=== PATIENT | female | born 1965 | race Caucasian/White ===

== ENCOUNTER 2020-09-30 14:54 | Outpatient (REF) | payer OTHER, SELFPAY ==
--- NOTE | 2020-09-30 15:00 | MM_ITS ---
EXAMINATION: MM SCREENING DIGITAL BREAST TOMOSYNTHESIS, BILATERAL CLINICAL INFORMATION: Screening. Asymptomatic. The lifetime risk of breast cancer based on the Tyrer-Cuzick Model is 8%. COMPARISON: Mammography: 03/04/2019, 12/01/2017, 11/12/2016 TECHNIQUE: Digital breast tomosynthesis is performed in both the craniocaudal and mediolateral oblique views along with computer-aided detection (CAD). Synthesized 2D images are generated from the tomosynthesis. FINDINGS: There are scattered areas of fibroglandular density (ACR BI-RADS breast composition Category b). There are no significant masses, abnormal calcifications, or other abnormalities. The axilla and skin contours are unremarkable. No significant changes. MM/MM tomosynthesis screening BI IMPRESSION: No mammographic evidence of malignancy. ASSESSMENT: BI-RADS 1: Negative RECOMMENDATION: Routine annual mammography screening. This patient's information was entered into a reminder system with a target due date for their next mammogram.
== END 2020-09-30 14:55 | disposition home or self-care (01) ==
LOC: HO.MAMMO 14:54
PROVIDERS: PCP Internal Medicine; Visit Provider Internal Medicine
DX: Z12.31 Encounter for screening mammogram for malignant neoplasm of breast (principal)
CPT/HCPCS: 77063; 77067

== ENCOUNTER → 2020-12-11 15:12 | Outpatient (BNVA) | payer OTHER, SELFPAY | PROVIDERS: Visit Provider Advanced Practice Midwife ==

== ENCOUNTER 2021-10-27 14:53 | Outpatient (REF) | payer OTHER, SELFPAY ==
--- NOTE | ~2021-10-27 | MM_ITS ---
EXAMINATION: MM SCREENING DIGITAL BREAST TOMOSYNTHESIS, BILATERAL CLINICAL INFORMATION: Screening. Asymptomatic. The lifetime risk of breast cancer based on the Tyrer-Cuzick Model is 7%. COMPARISON: Mammography: 09/30/2020, 03/04/2019, 12/01/2017 TECHNIQUE: Digital breast tomosynthesis is performed in both the craniocaudal and mediolateral oblique views along with computer-aided detection (CAD). Synthesized 2D images are generated from the tomosynthesis. Additional right MLO view is provided. FINDINGS: There are scattered areas of fibroglandular density (ACR BI-RADS breast composition Category b). Parenchymal pattern is similar to prior studies. There is no developing density or architectural abnormality. The axilla and skin contours are unremarkable. No significant changes. MM/MM tomosynthesis screening BI IMPRESSION: No mammographic evidence of malignancy. ASSESSMENT: BI-RADS 1: Negative RECOMMENDATION: Routine annual mammography screening. This patient's information was entered into a reminder system with a target due date for their next mammogram.
== END 2021-10-27 14:54 | disposition home or self-care (01) ==
LOC: HO.MAMMO 14:53
PROVIDERS: Visit Provider Internal Medicine
DX: Z12.31 Encounter for screening mammogram for malignant neoplasm of breast (principal)
CPT/HCPCS: 77063; 77067

== ENCOUNTER 2021-12-10 11:01 | Emergency (ER) | payer OTHER, SELFPAY ==
--- NOTE | 2021-12-10 11:14 | ED.ALLEREA ---
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 She reports after eating a muffin from the cafeteria she started to developed difficulty breathing and severe throat swelling. She immediately went to the nurse's office, got her EpiPen and the nurse administered the medication at approximately 10:25. On EMS arrival patient was tachycardic and had some labored breathing. She had given herself 4 puffs of her albuterol inhaler. She had reported her throat swelling and difficulty swallowing were starting to feel better after the EpiPen. She was given 50 mg of intravenous Benadryl by EMS. On arrival to the ER patient reports some residual shortness of breath but overall her symptoms have improved. She denies any tongue or lip swelling. No rash. MD complaint: allergic reaction Onset (ago): minute(s) Exposure: food Known history of allergy to: Nuts Symptoms: difficulty swallowing and difficulty breathing Severity: severe Treatment prior to arrival: benadryl, epinephrine and bronchodilator Previous Allergic Reaction History: prior ED visit(s) and anaphylaxis Related Data Home Medications Medication Instructions Recorded Confirmed albuterol sulfate 90 mcg/actuation 2 inh INHALATION Q6H PRN 12/11/20 breath activated powder inhaler budesonide-formoterol HFA 80 2 puff INHALATION BID 12/11/20 mcg-4.5 mcg/actuation aerosol inhaler (Symbicort) montelukast 10 mg tablet 10 mg PO DAILY 12/11/20 (Singulair) Previous Rx's Medication Instructions Recorded epinephrine 0.3 mg/0.3 mL 0.3 mg (0.3 mL) IM ONCE PRN #1 ea 12/10/21 injection, auto-injector (EpiPen 2-Markos) Allergies Allergy/AdvReac Type Severity Reaction Status Date / Time Penicillins [PENICILLINS] Allergy Intermediate RASH Unverified 09/17/21 13:36 acetaminophen [From PERCOCET] Allergy Unknown RASH Unverified 09/17/21 13:36 amoxicillin Allergy Unknown Verified 09/17/21 13:36 hydrocodone [Vicodin] Allergy Unknown Verified 09/17/21 13:36 oxycodone [From PERCOCET] Allergy Unknown RASH Unverified 09/17/21 13:36 peanut [PEANUT] Allergy Unknown TONGUE Unverified 09/17/21 13:36 SWELLING. TINGLING. SOB penicillin V Allergy Unknown Verified 09/17/21 13:36 tramadol Allergy Unknown Verified 09/17/21 13:36 Codeine Phosphate Allergy Unknown Uncoded 09/17/21 13:36 peanuts Allergy Unknown Uncoded 09/17/21 13:36 Review of Systems Review of Systems: Constitutional: No Fever, No Chills ENT/Mouth: No sore throat, No Rhinorrhea, + Swallowing Difficulty Eyes: No Eye Pain, No Swelling, No Redness Cardiovascular: No Chest Pain, + SOB, No Orthopnea, No Edema Respiratory: No Cough, No Sputum, No Wheezing, +dyspnea Gastrointestinal: No Nausea, No Vomiting, No abdominal Pain Musculoskeletal: No joint pain, No Myalgias Skin: No Skin Lesions, No rash Neuro: No Weakness, No Dizziness, No Headache Psych: + Anxiety/Panic Heme/Lymph: No Lymphadenopathy PMFSH Past Medical History Medical History (Updated 12/10/21 @ 11:21 by MARAH Castorena) Asthma GERD (gastroesophageal reflux disease) History of deviated nasal septum History of irregular heartbeat Surgical History (Updated 09/17/21 @ 13:36 by Cheryl Toney) History of back surgery History of cardiac radiofrequency ablation (RFA) History of urologic surgery Hx of carpal tunnel repair Hx of cholecystectomy Hx of eye surgery Family History Family History (System 09/17/21 @ 13:36 by Cheryl Toney) Father Throat cancer Mother HTN (hypertension) Family/Other Breast cancer Maternal Grandmother Heart valve replaced Social History Social History (System 09/17/21 @ 13:36 by Cheryl Toney) Alcohol intake: current Alcohol intake frequency: holidays/special occasions only Advance Directives: No Advance Directives Information Provided: No Patient : No Gender identity: Female Physical Exam ED Vital Signs: Vital Signs - 24 hr 12/10/21 11:21 12/10/21 11:25 12/10/21 12:32 Temperature 98.1 F 98.1 F Pulse Rate 81 78 67 Respiratory Rate 26 H 15 17 Blood Pressure 120/53 L 120/53 L 102/56 L Pulse Oximetry 100 100 97 BMI result Body Mass Index 25.5 Appearance: Alert. Oriented X3. Anxious. Eyes: Pupils equal, round and reactive to light. ENT: Pharynx normal. Airway patent. No lip or tongue swelling Neck: Normal inspection. Neck supple. CVS: Normal heart rate and rhythm. Pulses normal. Respiratory: Mild respiratory distress wtih RR 22. Breath sounds normal. Speaks in complete sentences Abdomen: Soft and nontender. +BS x4 Skin: Skin warm and dry. Normal skin color. Normal skin turgor. No rashes. Extremities: No lower extremity edema. Neuro: Oriented X 3. No motor deficit. No sensory deficit. Course Course Course Narrative: 56-year-old female presenting to the ER after she had an anaphylactic reaction after eating a muffin at work today. She was given EpiPen and 50 mg IV Benadryl prior to arrival. She continues to have some shortness of breath but overall her throat swelling and difficulty swallowing have much improved. Her vital signs are normal. Her lungs are clear. Will give a dose of IV Solu-Medrol and frequently reassessed. On compliance monitor, IV fluids infusing. Reevaluation(s) Reevaluation #1: RR improved. Feeling better. Solumedrol given. Reevaluation #2: Vital signs remain stable. Her sensation of throat swelling and difficulty swallowing is completely resolved. She feels much better. She has been observed in the emergency room for 3 hours. She is stable for discharge home. refill for her EpiPen has been sent to her pharmacy. She will follow-up with her primary care doctor. Stable for discharge home. Critical Care Time Critical Care Time Critical Care Time: Yes Total Critical Care Time: 35 Attestation: I have personally provided critical care time exclusive of time spent on separately billable procedures. Time includes review of lab data, radiology results, frequent bedside reassessments, and monitoring for potential decompensation. Intervention performed as documented. Discharge Plan Discharge Clinical Impression: Allergic reaction Patient Disposition: Home, Self-Care Instructions: General Allergic Reaction (ED) Additional Instructions: Use the prescribed EpiPen as needed for severe allergic reaction - if you use it come to the ER for evaluation. Follow up with your Primary Care doctor. If you develop new or worsening symptoms call 911 or come back to the ER for further evaluation. Prescriptions: New epinephrine [EpiPen 2-Markos] 0.3 mg/0.3 mL auto-injector 0.3 mg IM ONCE PRN (Reason: anaphylaxis) Qty: 1 0RF No Action budesonide-formoterol [Symbicort] 80-4.5 mcg/actuation HFA aerosol inhaler 2 puff inhalation BID 0RF albuterol sulfate 90 mcg/actuation aerosol powdr breath activated 2 inh inhalation Q6H PRN0RF montelukast [Singulair] 10 mg tablet 10 mg PO DAILY 0RF Referrals: Franklin Alvarenga MD [Primary Care Provider] - 2 days Stand Alone Forms: Work/School Release
[2021-12-10 11:18] VITALS: BP 117/78; PULSE 83; O2SAT 100
[2021-12-10 11:21] VITALS: BP 120/53; PULSE 81; RESP 26; TEMP 36.7; O2SAT 100; BMI 25.5
[2021-12-10] MEDS: methylPREDNISolone Sod Succ 125 MG/2 ML VIAL IVPUSH (11:22)
[2021-12-10 11:25] VITALS: BP 120/53; PULSE 78; RESP 15; TEMP 36.7; O2SAT 100
[2021-12-10 12:32] VITALS: BP 102/56; PULSE 67; RESP 17; O2SAT 97
== END 2021-12-10 14:15 | disposition home or self-care (01) ==
PROVIDERS: Emergency Provider Emergency Medicine; PCP Internal Medicine
DX: L27.2 Dermatitis due to ingested food (principal); R13.10 Dysphagia, unspecified; R06.02 Shortness of breath; Z79.899 Other long term (current) drug therapy
CPT/HCPCS: 96374; 99284; 99291; J2930

== ENCOUNTER 2022-08-07 15:23 | Outpatient (REF) | payer OTHER, SELFPAY ==
[2022-08-07 19:45] LABS: CT PCR NOT DETECTED (Not Detect.); NG PCR NOT DETECTED (Not Detect.)
[2022-08-08 10:24] LABS: BV Int Neg Control Negative (Negative); BV Int Pos Control Positive (Positive)
[2022-08-10 08:24] LABS: Syphilis Screen Nonreactive (Nonreactive)
[2022-08-10 09:07] LABS: HIV AB/AG Nonreactive (Nonreactive); HIV Num 1 0.06 S/CO (0.00-0.99); Hepatitis B Core Antibody Nonreactive (Nonreactive); ~HepC Num1 0.07 S/CO (0.00-0.79); ~Hepatitis C Antibody Nonreactive (Nonreactive)
[2022-08-14 23:47] LABS: HPV mRNA E6/E7 Not Detected (Not Detected)
== END 2022-08-07 15:24 | disposition home or self-care (01) ==
LOC: HO.LNP 15:23
PROVIDERS: Visit Provider Advanced Practice Midwife
DX: Z01.419 Encounter for gynecological examination (general) (routine) without abnormal findings (principal); Z11.51 Encounter for screening for human papillomavirus (HPV); Z20.2 Contact with and (suspected) exposure to infections with a predominantly sexual mode of transmission
CPT/HCPCS: 86704; 86780; 86803; 87389; 87480; 87491; 87510; 87591; 87624; 87660; 88142

== ENCOUNTER 2022-10-30 08:02 | Outpatient (REF) | payer OTHER, SELFPAY ==
--- NOTE | ~2022-10-30 | MM_ITS ---
EXAMINATION: MM SCREENING DIGITAL BREAST WITH TOMOSYNTHESIS, BILATERAL CLINICAL INFORMATION: Screening. Asymptomatic. The lifetime risk of breast cancer based on the Tyrer-Cuzick Model is 8.7%. COMPARISON: Mammography: 10/27/2021 and studies dating back to 10/21/2015. TECHNIQUE: Digital breast tomosynthesis is performed in both the craniocaudal and mediolateral oblique views along with computer-aided detection (CAD). Synthesized 2D images are generated from the tomosynthesis. FINDINGS: There are scattered areas of fibroglandular density (ACR BI-RADS breast composition Category b). RIGHT BREAST: There is a stable parenchymal pattern of the right breast with no new abnormal dominant mass or suspicious grouping of microcalcifications being present. LEFT BREAST: About the retroareolar lateral aspect of the left breast craniocaudal view there is question of a partially circumscribed density for which spot compression view is recommended. No correlate is seen on mediolateral oblique image. MM/MM tomosynthesis screening BI IMPRESSION: Question retroareolar lesion left breast on craniocaudal view. ASSESSMENT: BI-RADS 0: Incomplete - Need Additional Imaging Evaluation RECOMMENDATION: 1. Additional views of the left breast. 2. Targeted ultrasound if warranted after review of the additional views. 3. Radiology Department staff will contact the patient for additional imaging. This patient's information was entered into a reminder system with a target due date for their next mammogram.
== END 2022-10-30 08:03 | disposition home or self-care (01) ==
LOC: HO.MAMMO 08:02
PROVIDERS: PCP Internal Medicine; Visit Provider Internal Medicine
DX: Z12.31 Encounter for screening mammogram for malignant neoplasm of breast (principal)
CPT/HCPCS: 77063; 77067

== ENCOUNTER 2022-11-23 12:52 | Outpatient (REF) | payer OTHER, SELFPAY ==
--- NOTE | ~2022-11-23 | MM_ITS ---
EXAMINATION: MM DIAGNOSTIC DIGITAL BREAST TOMOSYNTHESIS, LEFT US DIAGNOSTIC ULTRASOUND BREAST, LEFT CLINICAL INFORMATION: Recall from screening for question of lateral subareolar asymmetry. COMPARISON: Multiple prior mammography exams, most recent 10/30/2022. TECHNIQUE: Digital breast tomosynthesis is performed. 2D images are generated from the tomosynthesis. The following views are obtained: Spot CC, spot ML Ultrasound left breast is targeted to the subareolar and lateral periareolar region using grayscale imaging and color Doppler without and with harmonics. FINDINGS: There are scattered areas of fibroglandular density (ACR BI-RADS breast composition Category b). The additional views show no persistent asymmetric density or architectural abnormality. No developing density from prior studies. Ultrasound demonstrates no cystic or solid mass, focal duct ectasia, or architectural abnormality. Results are discussed with the patient at time of visit. MM/MM tomosynthesis added views L IMPRESSION: 1. Additional views show no persistent asymmetric density or architectural abnormality. 2. Unremarkable targeted left breast ultrasound. ASSESSMENT: BI-RADS 1: Negative RECOMMENDATION: Routine annual mammography screening. This patient's information was entered into a reminder system with a target due date for their next mammogram.
== END 2022-11-23 12:53 | disposition home or self-care (01) ==
LOC: HO.MAMMO 12:52
PROVIDERS: PCP Internal Medicine; Visit Provider Internal Medicine
DX: R92.8 Other abnormal and inconclusive findings on diagnostic imaging of breast (principal)
CPT/HCPCS: 76642; 77061; 77065

== ENCOUNTER 2022-12-13 17:56 | Emergency (ER) | payer OTHER, SELFPAY ==
--- NOTE | ~2022-12-13 | XR_ITS ---
EXAMINATION: XR CHEST CLINICAL INFORMATION: Shortness of breath. COMPARISON: Chest x-ray 10/10/2019 TECHNIQUE: 2 views of the chest were obtained. FINDINGS: No significant abnormality is noted involving the heart, lungs, mediastinum, bony thorax or soft tissues. Surgical clips right upper quadrant of abdomen XR/XR chest 2V IMPRESSION: Unremarkable examination.
--- NOTE | 2022-12-13 18:15 | ED.GENADULT ---
HPI - General Adult General Chief complaint: Dyspnea Stated complaint: SOB Time Seen by Provider: 12/13/22 19:26 Related Data Home Medications Medication Instructions Recorded Confirmed albuterol sulfate 90 mcg/actuation 2 inh inhalation Q6H PRN 12/11/20 breath activated powder inhaler budesonide-formoterol HFA 80 2 puff inhalation BID 12/11/20 mcg-4.5 mcg/actuation aerosol inhaler (Symbicort) montelukast 10 mg tablet 10 mg PO DAILY 12/11/20 (Singulair) Previous Rx's Medication Instructions Recorded epinephrine 0.3 mg/0.3 mL 0.3 mg (0.3 mL) IM ONCE PRN 12/10/21 injection, auto-injector (EpiPen anaphylaxis #1 ea 2-Markos) albuterol sulfate 0.63 mg/3 mL 0.63 mg (3 mL) inhalation QID PRN 12/13/22 solution for nebulization bronchospasm #75 mL azithromycin 250 mg tablet See Rx Instructions PO .COMPLEX 12/13/22 upper resp infection #6 tabs prednisone 20 mg tablet 40 mg PO DAILY #10 tabs 12/13/22 Allergies Allergy/AdvReac Type Severity Reaction Status Date / Time Penicillins [PENICILLINS] Allergy Intermediate RASH Unverified 08/07/22 14:57 acetaminophen [From PERCOCET] Allergy Unknown RASH Unverified 08/07/22 14:57 amoxicillin Allergy Unknown Rash Verified 08/07/22 14:57 hydrocodone [Vicodin] Allergy Unknown Rash Verified 08/07/22 14:57 oxycodone [From PERCOCET] Allergy Unknown RASH Unverified 08/07/22 14:57 peanut [PEANUT] Allergy Unknown TONGUE Unverified 08/07/22 14:57 SWELLING. TINGLING. SOB penicillin V Allergy Unknown Rash Verified 08/07/22 14:57 tramadol Allergy Unknown Rash Verified 08/07/22 14:57 Codeine Phosphate Allergy Unknown Rash Uncoded 08/07/22 14:57 peanuts Allergy Unknown Anaphylaxis Uncoded 08/07/22 14:57 PMFSH Past Medical History Medical History Asthma GERD (gastroesophageal reflux disease) History of deviated nasal septum History of irregular heartbeat Surgical History History of back surgery History of cardiac radiofrequency ablation (RFA) History of urologic surgery Hx of carpal tunnel repair Hx of cholecystectomy Hx of eye surgery Family History Family History Father Throat cancer Mother HTN (hypertension) Dementia Family/Other Breast cancer Maternal Grandmother Heart valve replaced Social History Social History Household Members Other:: daughter Housing: House Alcohol intake: current Alcohol intake frequency: holidays/special occasions only Patient Tobacco Use Status: Former Tobacco user Years Smoked: 6 Advance Directives: No Advance Directives Information Provided: No service: No Current occupational status: employed Current occupation: Director Sexual orientation: Straight/Heterosexual Gender identity: Female Physical Exam ED Vital Signs: BMI result Body Mass Index 24.7 Course Course Course Narrative: RME performed by Dunia Fishman PA-C. Patient is a 57 year old female presenting to the emergency department with shortness of breath. Patient has a history of asthma. Labs, CXR, and EKG ordered. Patient placed back in the waiting room pending results and room availability. Dr. Mckeon evaluated and discharged this patient as documented in a separate, completed note. Medications Administered Discontinued Medications Generic Name Dose Route Start Last Admin Trade Name Freq PRN Reason Stop Dose Admin Albuterol Sulfate 2.5 mg 12/13/22 19:28 12/13/22 19:53 Albuterol Sulfate (0.083%) 2.5 Mg/3 Ml Vial.Neb INHALE 12/13/22 19:29 2.5 mg ONCE ONE Administration Prednisone 60 mg 12/13/22 19:28 12/13/22 20:14 Prednisone 20 Mg Tablet PO 12/13/22 19:29 60 mg ONCE ONE Administration Medical Decision Making Lab Data 12/13/22 18:31 12/13/22 18:31 Labs: Lab Results 12/13/22 12/13/22 12/13/22 Range/Units 18:31 18:31 18:31 WBC 5.3 (4.8-10.8) X10*3/uL RBC 3.84 L (4.20-5.50) X10*6/uL Hgb 12.3 (12.0-16.0) g/dl Hct 34.7 L (37.0-47.0) % MCV 90.4 (80.0-98.0) fL MCH 32.0 (27.0-33.0) pg MCHC 35.4 H (31.0-35.0) g/dl RDW 12.6 (11.0-16.0) % Plt Count 163 (160-400) X10*3/uL MPV 10.6 (9.4-12.3) fL Immature Gran % (Auto) 0.2 (0.0-0.4) % Neut % (Auto) 60.8 (45-73) % Lymph % (Auto) 30.9 (20-40) % [place] % (Auto) 5.0 (2-11) % Eos % (Auto) 2.5 (0-4) % Baso % (Auto) 0.6 (0-2) % Lymph # (Auto) 1.6 (1.2-4.9) X10*3/uL [place] # (Auto) 0.3 (0.1-1.2) X10*3/uL Eos # (Auto) 0.1 (0.0-0.4) X10*3/uL Baso # (Auto) 0.0 (0.0-0.2) X10*3/uL Abs Immat Gran (auto) 0.01 (0.00-0.03) X10*3/uL Absolute Neuts (auto) 3.2 (2.0-8.3) x10*3/uL Absolute Nucleated RBC 0.000 (0.0-0.012) X10*3/uL Nucleated RBC % (auto) 0.0 (0.0-0.2) /100WBC D-Dimer High Sensitivty NG/ML Sodium 142 (135-145) mmol/L Potassium 3.3 (3.3-5.1) mmol/L Chloride 108 (96-108) mmol/L Carbon Dioxide 23 (22-29) mmol/L Anion Gap 14 (12-20) BUN 18 H (9-16) mg/dL Creatinine 0.83 (0.5-1.4) mg/dL Estim Creat Clear Calc 67.1 Estimated GFR > 60 Random Glucose 89 (60-115) mg/dL Calcium 9.5 (8.4-10.2) mg/dL Magnesium 2.2 (1.6-2.6) mg/dL Total Bilirubin 0.7 (0.0-1.0) mg/dL AST 22 (5-31) U/L ALT 19 (0-31) U/L Alkaline Phosphatase 65 (39-117) U/L Troponin I High Sens < 3.5 (<3.5-17.0) ng/L B-Natriuretic Peptide (<100) pg/mL Total Protein 6.3 L (6.5-8.0) g/dL Albumin 4.1 (3.5-5.0) g/dL COVID-19 (OPAL) (Negative) COVID-19 Clin Com S. pyogenes GrpA WILY (Negative) 12/13/22 12/13/22 12/13/22 Range/Units 18:31 18:31 20:13 WBC (4.8-10.8) X10*3/uL RBC (4.20-5.50) X10*6/uL Hgb (12.0-16.0) g/dl Hct (37.0-47.0) % MCV (80.0-98.0) fL MCH (27.0-33.0) pg MCHC (31.0-35.0) g/dl RDW (11.0-16.0) % Plt Count (160-400) X10*3/uL MPV (9.4-12.3) fL Immature Gran % (Auto) (0.0-0.4) % Neut % (Auto) (45-73) % Lymph % (Auto) (20-40) % [place] % (Auto) (2-11) % Eos % (Auto) (0-4) % Baso % (Auto) (0-2) % Lymph # (Auto) (1.2-4.9) X10*3/uL [place] # (Auto) (0.1-1.2) X10*3/uL Eos # (Auto) (0.0-0.4) X10*3/uL Baso # (Auto) (0.0-0.2) X10*3/uL Abs Immat Gran (auto) (0.00-0.03) X10*3/uL Absolute Neuts (auto) (2.0-8.3) x10*3/uL Absolute Nucleated RBC (0.0-0.012) X10*3/uL Nucleated RBC % (auto) (0.0-0.2) /100WBC D-Dimer High Sensitivty NG/ML Sodium (135-145) mmol/L Potassium (3.3-5.1) mmol/L Chloride (96-108) mmol/L Carbon Dioxide (22-29) mmol/L Anion Gap (12-20) BUN (9-16) mg/dL Creatinine (0.5-1.4) mg/dL Estim Creat Clear Calc Estimated GFR Random Glucose (60-115) mg/dL Calcium (8.4-10.2) mg/dL Magnesium (1.6-2.6) mg/dL Total Bilirubin (0.0-1.0) mg/dL AST (5-31) U/L ALT (0-31) U/L Alkaline Phosphatase (39-117) U/L Troponin I High Sens (<3.5-17.0) ng/L B-Natriuretic Peptide 43 (<100) pg/mL Total Protein (6.5-8.0) g/dL Albumin (3.5-5.0) g/dL COVID-19 (OPAL) Negative (Negative) COVID-19 Clin Com See Note S. pyogenes GrpA WILY Negative (Negative) 12/13/22 Range/Units 20:26 WBC (4.8-10.8) X10*3/uL RBC (4.20-5.50) X10*6/uL Hgb (12.0-16.0) g/dl Hct (37.0-47.0) % MCV (80.0-98.0) fL MCH (27.0-33.0) pg MCHC (31.0-35.0) g/dl RDW (11.0-16.0) % Plt Count (160-400) X10*3/uL MPV (9.4-12.3) fL Immature Gran % (Auto) (0.0-0.4) % Neut % (Auto) (45-73) % Lymph % (Auto) (20-40) % [place] % (Auto) (2-11) % Eos % (Auto) (0-4) % Baso % (Auto) (0-2) % Lymph # (Auto) (1.2-4.9) X10*3/uL [place] # (Auto) (0.1-1.2) X10*3/uL Eos # (Auto) (0.0-0.4) X10*3/uL Baso # (Auto) (0.0-0.2) X10*3/uL Abs Immat Gran (auto) (0.00-0.03) X10*3/uL Absolute Neuts (auto) (2.0-8.3) x10*3/uL Absolute Nucleated RBC (0.0-0.012) X10*3/uL Nucleated RBC % (auto) (0.0-0.2) /100WBC D-Dimer High Sensitivty < 150 NG/ML Sodium (135-145) mmol/L Potassium (3.3-5.1) mmol/L Chloride (96-108) mmol/L Carbon Dioxide (22-29) mmol/L Anion Gap (12-20) BUN (9-16) mg/dL Creatinine (0.5-1.4) mg/dL Estim Creat Clear Calc Estimated GFR Random Glucose (60-115) mg/dL Calcium (8.4-10.2) mg/dL Magnesium (1.6-2.6) mg/dL Total Bilirubin (0.0-1.0) mg/dL AST (5-31) U/L ALT (0-31) U/L Alkaline Phosphatase (39-117) U/L Troponin I High Sens (<3.5-17.0) ng/L B-Natriuretic Peptide (<100) pg/mL Total Protein (6.5-8.0) g/dL Albumin (3.5-5.0) g/dL COVID-19 (OPAL) (Negative) COVID-19 Clin Com S. pyogenes GrpA WILY (Negative) Discharge Plan Discharge Clinical Impression: Asthma with exacerbation Patient Disposition: Home, Self-Care Instructions: Asthma (ED) Prescriptions: New prednisone 20 mg tablet 40 mg PO DAILY Qty: 10 0RF azithromycin 250 mg tablet See Rx Instructions .ROUTE .COMPLEX Qty: 6 0RF Rx Instructions: take 500 mg today (day 1), then 250 mg for 4 days (days 2-5) albuterol sulfate 0.63 mg/3 mL solution for nebulization 0.63 mg inhalation QID PRN (Reason: bronchospasm) Qty: 75 0RF No Action epinephrine [EpiPen 2-Markos] 0.3 mg/0.3 mL auto-injector 0.3 mg IM ONCE PRN (Reason: anaphylaxis) Qty: 1 0RF budesonide-formoterol [Symbicort] 80-4.5 mcg/actuation HFA aerosol inhaler 2 puff inhalation BID albuterol sulfate 90 mcg/actuation aerosol powdr breath activated 2 inh inhalation Q6H PRN montelukast [Singulair] 10 mg tablet 10 mg PO DAILY Referrals: Franklin Alvarenga MD [Primary Care Provider] - Interventions: ED Discharge Assessment Last Done: 12/13/22 22:05 Discharge Date/Time: 12/13/22 22:06
--- NOTE | 2022-12-13 18:16 | ECG_ITS ---
Test Reason : DIZZYNESS Blood Pressure : / mmHG Vent. Rate : 061 BPM Atrial Rate : 061 BPM P-R Int : 160 ms QRS Dur : 080 ms QT Int : 422 ms P-R-T Axes : 044 061 060 degrees QTc Int : 424 ms Normal sinus rhythm Normal ECG When compared with ECG of 05-SEP-2017 21:33, No significant change was found Referred By: Dunia Fishman Electronically Signed By:Rodolfo García
[2022-12-13 18:17] VITALS: BP 130/70; PULSE 75; RESP 20; TEMP 36.6; O2SAT 100; BMI 24.7
[2022-12-13 18:39] LABS: MANUAL DIFF FLAG NO
[2022-12-13 18:41] LABS: Basophils Percent Auto 0.6 % (0-2); Eosinophils Absolute Auto 0.1 X10*3/uL (0.0-0.4); Eosinophils Percent Auto 2.5 % (0-4); Hematocrit 34.7 % (37.0-47.0); Hemoglobin 12.3 g/dl (12.0-16.0); Imm Gran Abs Auto 0.01 X10*3/uL (0.00-0.03); Imm Gran Pct Auto 0.2 % (0.0-0.4); Lymphocytes Absolute Auto 1.6 X10*3/uL (1.2-4.9); Lymphocytes Percent Auto 30.9 % (20-40); Mean Corpuscular HGB Conc 35.4 g/dl (31.0-35.0); Mean Corpuscular Volume 90.4 fL (80.0-98.0); Mean Platelet Volume 10.6 fL (9.4-12.3); Monocytes Absolute Auto 0.3 X10*3/uL (0.1-1.2); Neutrophils Absolute Auto 3.2 x10*3/uL (2.0-8.3); Neutrophils Percent Auto 60.8 % (45-73); Platelet Count 163 X10*3/uL (160-400); Red Blood Count 3.84 X10*6/uL (4.20-5.50); Red Cell Distribution Width 12.6 % (11.0-16.0); White Blood Count 5.3 X10*3/uL (4.8-10.8)
[2022-12-13 18:57] LABS: Alanine Aminotransferase 19 U/L (0-31); Albumin Level 4.1 g/dL (3.5-5.0); Alkaline Phosphatase 65 U/L (39-117); Anion Gap 14 (12-20); Aspartate Amino Transferase 22 U/L (5-31); Bilirubin Total 0.7 mg/dL (0.0-1.0); Blood Urea Nitrogen 18 mg/dL (9-16); Calcium 9.5 mg/dL (8.4-10.2); Carbon Dioxide 23 mmol/L (22-29); Chloride 108 mmol/L (96-108); Creatinine Clr Calc Pharmacy 67.1; Estimated Glomerular Filt Rate > 60; Glucose Random 89 mg/dL (60-115); Magnesium 2.2 mg/dL (1.6-2.6); Potassium 3.3 mmol/L (3.3-5.1); Sodium 142 mmol/L (135-145); Total Protein 6.3 g/dL (6.5-8.0)
[2022-12-13 19:01] LABS: B Type Natriuretic Peptide 43 pg/mL (<100)
[2022-12-13 19:05] LABS: Troponin-I High Sensitivity < 3.5 ng/L (<3.5-17.0)
[2022-12-13 19:09] LABS: COVID-19 Test Negative (Negative); IDNOW Serial# BCCEAD1C
[2022-12-13] MEDS: Albuterol Sulfate (0.083%) 2.5 MG/3 ML VIAL.NEB INHALE (19:53)
[2022-12-13] MEDS: predniSONE 20 MG TABLET 60 MG PO (20:14)
[2022-12-13 20:33] LABS: IDNOW Serial# 6674DD1D; Strep A Nucleic Acid Negative (Negative)
[2022-12-13 21:13] LABS: D Dimer High Sensitivity < 150 NG/ML
--- NOTE | 2022-12-13 21:47 | ED.SOB ---
HPI - SOB/Dyspnea General Chief Complaint: Dyspnea Stated Complaint: SOB Time Seen by Provider: 12/13/22 19:26 History of Present Illness HPI Narrative: Patient is a 57-year-old female with a history of asthma presents today with having coughing congestion wheezing shortness of breath not feeling well. The symptom has been ongoing for 3 days. Took some updrafts at home to no avail. No fever no chills positive cough but no sick contact. Patient is vaccinated for COVID. Never been hospitalized for asthma Related Data Home Medications Medication Instructions Recorded Confirmed albuterol sulfate 90 mcg/actuation 2 inh inhalation Q6H PRN 12/11/20 breath activated powder inhaler budesonide-formoterol HFA 80 2 puff inhalation BID 12/11/20 mcg-4.5 mcg/actuation aerosol inhaler (Symbicort) montelukast 10 mg tablet 10 mg PO DAILY 12/11/20 (Singulair) Previous Rx's Medication Instructions Recorded epinephrine 0.3 mg/0.3 mL 0.3 mg (0.3 mL) IM ONCE PRN 12/10/21 injection, auto-injector (EpiPen anaphylaxis #1 ea 2-Markos) azithromycin 250 mg tablet See Rx Instructions PO .COMPLEX 12/13/22 upper resp infection #6 tabs prednisone 20 mg tablet 40 mg PO DAILY #10 tabs 12/13/22 Allergies Allergy/AdvReac Type Severity Reaction Status Date / Time Penicillins [PENICILLINS] Allergy Intermediate RASH Unverified 08/07/22 14:57 acetaminophen [From PERCOCET] Allergy Unknown RASH Unverified 08/07/22 14:57 amoxicillin Allergy Unknown Rash Verified 08/07/22 14:57 hydrocodone [Vicodin] Allergy Unknown Rash Verified 08/07/22 14:57 oxycodone [From PERCOCET] Allergy Unknown RASH Unverified 08/07/22 14:57 peanut [PEANUT] Allergy Unknown TONGUE Unverified 08/07/22 14:57 SWELLING. TINGLING. SOB penicillin V Allergy Unknown Rash Verified 08/07/22 14:57 tramadol Allergy Unknown Rash Verified 08/07/22 14:57 Codeine Phosphate Allergy Unknown Rash Uncoded 08/07/22 14:57 peanuts Allergy Unknown Anaphylaxis Uncoded 08/07/22 14:57 Review of Systems Review of Systems: Positive shortness of breath coughing upper respiratory symptoms Yes all other systems are reviewed and are negative [facility] Past Medical History Attestation statement: The following information was validated with the patient. Medical History Asthma GERD (gastroesophageal reflux disease) History of deviated nasal septum History of irregular heartbeat Surgical History History of back surgery History of cardiac radiofrequency ablation (RFA) History of urologic surgery Hx of carpal tunnel repair Hx of cholecystectomy Hx of eye surgery Family History Family History Father Throat cancer Mother HTN (hypertension) Dementia Family/Other Breast cancer Maternal Grandmother Heart valve replaced Social History Social History Household Members Other:: daughter Housing: House Alcohol intake: current Alcohol intake frequency: holidays/special occasions only Patient Tobacco Use Status: Former Tobacco user Years Smoked: 6 Advance Directives: No Advance Directives Information Provided: No service: No Current occupational status: employed Current occupation: Director Sexual orientation: Straight/Heterosexual Gender identity: Female Physical Exam Vital Signs: Vital Signs: Last Vital Signs Temp 98 F 12/13/22 18:17 Pulse 75 12/13/22 18:17 Resp 20 12/13/22 18:17 BP 130/70 12/13/22 18:17 Pulse Ox 100 12/13/22 18:17 O2 Del Method 12/13/22 18:17 BMI result Body Mass Index 24.7 Appearance: Alert. Oriented X3. No acute distress. Eyes: Pupils equal, round and reactive to light. ENT: Pharynx normal. Neck: Normal inspection. Neck supple. No lymph nodes noted. No crepitus CVS: Normal heart rate and rhythm. Pulses normal. Normal S1 and S2 Respiratory: No respiratory distress. Breath sounds normal. Minimal Wheezing. No rales Abdomen: Soft and nontender. No rigidity. No distention. good BS x4 Skin: Skin warm and dry. Normal skin color. Normal skin turgor. Extremities: No lower extremity edema. Neurovascular intact to all extremities. No Lacerations. No Rash Neuro: Oriented X 3. No motor deficit. No sensory deficit. Moving all extermities. No slurred speech Medications Administered Discontinued Medications Generic Name Dose Route Start Last Admin Trade Name Edmar PRN Reason Stop Dose Admin Albuterol Sulfate 2.5 mg 12/13/22 19:28 12/13/22 19:53 Albuterol Sulfate (0.083%) 2.5 Mg/3 Ml Vial.Neb INHALE 12/13/22 19:29 2.5 mg ONCE ONE Administration Prednisone 60 mg 12/13/22 19:28 12/13/22 20:14 Prednisone 20 Mg Tablet PO 12/13/22 19:29 60 mg ONCE ONE Administration Medical Decision Making Medical Decision Making [facility] Narrative: Patient well-appearing minimal wheezing given neb treatments steroids with good relief of symptoms. Patient's D-dimer is negative in the setting of low risk unlikely to have PE. Patient's BNP is normal there is no evidence for congestive heart failure. Chest x-ray was done there is no evidence for pneumonia no evidence for pneumothorax there is no evidence for rib fractures. Her O2 sat is 100%. Patient is comfortable. Will discharge home. Differential Diagnosis Differential Diagnoses: The differential diagnosis associated with the presentation includes Asthma, PE, pneumonia, pneumothorax Admission/Observation Consideration of admission/observation: Escalation of care including admission/observation considered [place] symptoms improved enough to go home Lab Data [facility] Lab Attestation statement: I reviewed the patient's lab results. 12/13/22 18:31 12/13/22 18:31 Labs: Lab Results 12/13/22 12/13/22 12/13/22 Range/Units 18:31 18:31 18:31 WBC 5.3 (4.8-10.8) X10*3/uL RBC 3.84 L (4.20-5.50) X10*6/uL Hgb 12.3 (12.0-16.0) g/dl Hct 34.7 L (37.0-47.0) % MCV 90.4 (80.0-98.0) fL MCH 32.0 (27.0-33.0) pg MCHC 35.4 H (31.0-35.0) g/dl RDW 12.6 (11.0-16.0) % Plt Count 163 (160-400) X10*3/uL MPV 10.6 (9.4-12.3) fL Immature Gran % (Auto) 0.2 (0.0-0.4) % Neut % (Auto) 60.8 (45-73) % Lymph % (Auto) 30.9 (20-40) % [place] % (Auto) 5.0 (2-11) % Eos % (Auto) 2.5 (0-4) % Baso % (Auto) 0.6 (0-2) % Lymph # (Auto) 1.6 (1.2-4.9) X10*3/uL [place] # (Auto) 0.3 (0.1-1.2) X10*3/uL Eos # (Auto) 0.1 (0.0-0.4) X10*3/uL Baso # (Auto) 0.0 (0.0-0.2) X10*3/uL Abs Immat Gran (auto) 0.01 (0.00-0.03) X10*3/uL Absolute Neuts (auto) 3.2 (2.0-8.3) x10*3/uL Absolute Nucleated RBC 0.000 (0.0-0.012) X10*3/uL Nucleated RBC % (auto) 0.0 (0.0-0.2) /100WBC D-Dimer High Sensitivty NG/ML Sodium 142 (135-145) mmol/L Potassium 3.3 (3.3-5.1) mmol/L Chloride 108 (96-108) mmol/L Carbon Dioxide 23 (22-29) mmol/L Anion Gap 14 (12-20) BUN 18 H (9-16) mg/dL Creatinine 0.83 (0.5-1.4) mg/dL Estim Creat Clear Calc 67.1 Estimated GFR > 60 Random Glucose 89 (60-115) mg/dL Calcium 9.5 (8.4-10.2) mg/dL Magnesium 2.2 (1.6-2.6) mg/dL Total Bilirubin 0.7 (0.0-1.0) mg/dL AST 22 (5-31) U/L ALT 19 (0-31) U/L Alkaline Phosphatase 65 (39-117) U/L Troponin I High Sens < 3.5 (<3.5-17.0) ng/L B-Natriuretic Peptide (<100) pg/mL Total Protein 6.3 L (6.5-8.0) g/dL Albumin 4.1 (3.5-5.0) g/dL COVID-19 (OPAL) (Negative) COVID-19 Clin Com S. pyogenes GrpA WILY (Negative) 12/13/22 12/13/22 12/13/22 Range/Units 18:31 18:31 20:13 WBC (4.8-10.8) X10*3/uL RBC (4.20-5.50) X10*6/uL Hgb (12.0-16.0) g/dl Hct (37.0-47.0) % MCV (80.0-98.0) fL MCH (27.0-33.0) pg MCHC (31.0-35.0) g/dl RDW (11.0-16.0) % Plt Count (160-400) X10*3/uL MPV (9.4-12.3) fL Immature Gran % (Auto) (0.0-0.4) % Neut % (Auto) (45-73) % Lymph % (Auto) (20-40) % [place] % (Auto) (2-11) % Eos % (Auto) (0-4) % Baso % (Auto) (0-2) % Lymph # (Auto) (1.2-4.9) X10*3/uL [place] # (Auto) (0.1-1.2) X10*3/uL Eos # (Auto) (0.0-0.4) X10*3/uL Baso # (Auto) (0.0-0.2) X10*3/uL Abs Immat Gran (auto) (0.00-0.03) X10*3/uL Absolute Neuts (auto) (2.0-8.3) x10*3/uL Absolute Nucleated RBC (0.0-0.012) X10*3/uL Nucleated RBC % (auto) (0.0-0.2) /100WBC D-Dimer High Sensitivty NG/ML Sodium (135-145) mmol/L Potassium (3.3-5.1) mmol/L Chloride (96-108) mmol/L Carbon Dioxide (22-29) mmol/L Anion Gap (12-20) BUN (9-16) mg/dL Creatinine (0.5-1.4) mg/dL Estim Creat Clear Calc Estimated GFR Random Glucose (60-115) mg/dL Calcium (8.4-10.2) mg/dL Magnesium (1.6-2.6) mg/dL Total Bilirubin (0.0-1.0) mg/dL AST (5-31) U/L ALT (0-31) U/L Alkaline Phosphatase (39-117) U/L Troponin I High Sens (<3.5-17.0) ng/L B-Natriuretic Peptide 43 (<100) pg/mL Total Protein (6.5-8.0) g/dL Albumin (3.5-5.0) g/dL COVID-19 (OPAL) Negative (Negative) COVID-19 Clin Com See Note S. pyogenes GrpA WILY Negative (Negative) 12/13/22 Range/Units 20:26 WBC (4.8-10.8) X10*3/uL RBC (4.20-5.50) X10*6/uL Hgb (12.0-16.0) g/dl Hct (37.0-47.0) % MCV (80.0-98.0) fL MCH (27.0-33.0) pg MCHC (31.0-35.0) g/dl RDW (11.0-16.0) % Plt Count (160-400) X10*3/uL MPV (9.4-12.3) fL Immature Gran % (Auto) (0.0-0.4) % Neut % (Auto) (45-73) % Lymph % (Auto) (20-40) % [place] % (Auto) (2-11) % Eos % (Auto) (0-4) % Baso % (Auto) (0-2) % Lymph # (Auto) (1.2-4.9) X10*3/uL [place] # (Auto) (0.1-1.2) X10*3/uL Eos # (Auto) (0.0-0.4) X10*3/uL Baso # (Auto) (0.0-0.2) X10*3/uL Abs Immat Gran (auto) (0.00-0.03) X10*3/uL Absolute Neuts (auto) (2.0-8.3) x10*3/uL Absolute Nucleated RBC (0.0-0.012) X10*3/uL Nucleated RBC % (auto) (0.0-0.2) /100WBC D-Dimer High Sensitivty < 150 NG/ML Sodium (135-145) mmol/L Potassium (3.3-5.1) mmol/L Chloride (96-108) mmol/L Carbon Dioxide (22-29) mmol/L Anion Gap (12-20) BUN (9-16) mg/dL Creatinine (0.5-1.4) mg/dL Estim Creat Clear Calc Estimated GFR Random Glucose (60-115) mg/dL Calcium (8.4-10.2) mg/dL Magnesium (1.6-2.6) mg/dL Total Bilirubin (0.0-1.0) mg/dL AST (5-31) U/L ALT (0-31) U/L Alkaline Phosphatase (39-117) U/L Troponin I High Sens (<3.5-17.0) ng/L B-Natriuretic Peptide (<100) pg/mL Total Protein (6.5-8.0) g/dL Albumin (3.5-5.0) g/dL COVID-19 (OPAL) (Negative) COVID-19 Clin Com S. pyogenes GrpA WILY (Negative) Discharge Plan Discharge Clinical Impression: Asthma with exacerbation Patient Disposition: Home, Self-Care Instructions: Asthma (ED) Prescriptions: New prednisone 20 mg tablet 40 mg PO DAILY Qty: 10 0RF azithromycin 250 mg tablet See Rx Instructions .ROUTE .COMPLEX Qty: 6 0RF Rx Instructions: take 500 mg today (day 1), then 250 mg for 4 days (days 2-5) No Action epinephrine [EpiPen 2-Markos] 0.3 mg/0.3 mL auto-injector 0.3 mg IM ONCE PRN (Reason: anaphylaxis) Qty: 1 0RF budesonide-formoterol [Symbicort] 80-4.5 mcg/actuation HFA aerosol inhaler 2 puff inhalation BID albuterol sulfate 90 mcg/actuation aerosol powdr breath activated 2 inh inhalation Q6H PRN montelukast [Singulair] 10 mg tablet 10 mg PO DAILY Referrals: Franklin Alvarenga MD [Primary Care Provider] -
== END 2022-12-13 22:06 | disposition home or self-care (01) ==
PROVIDERS: Physician Assistant Medical; Emergency Provider Emergency Medicine Emergency Medical Services; PCP Internal Medicine
DX: J45.901 Unspecified asthma with (acute) exacerbation (principal); R06.02 Shortness of breath; R05.9 Cough, unspecified; Z20.822 Contact with and (suspected) exposure to COVID-19; Z20.828 Contact with and (suspected) exposure to other viral communicable diseases; Z87.891 Personal history of nicotine dependence; Z79.899 Other long term (current) drug therapy
CPT/HCPCS: 36415; 71046; 80053; 83735; 83880; 84484; 85025; 85379; 87635; 87651; 93005; 99283

== ENCOUNTER 2023-08-10 14:35 | Outpatient (AMB) | payer OTHER, SELFPAY ==
--- NOTE | 2023-08-10 14:37 | MHC.OFFVIS ---
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 Intake Note: Scribed for Irma Wiggins CNM by Frank Niño, medical biller/coder, on 08/10/23 at 3:05 PM, EST Campus Recruiting Coordinator: Campus Recruiting Coordinator Present (Janae) Allergies Penicillins [PENICILLINS] Allergy (Intermediate, Verified 08/10/23 14:38) RASH acetaminophen [From PERCOCET] Allergy (Unknown, Verified 08/10/23 14:38) RASH amoxicillin Allergy (Unknown, Verified 08/10/23 14:38) Rash hydrocodone [Vicodin] Allergy (Unknown, Verified 08/10/23 14:38) Rash oxycodone [From PERCOCET] Allergy (Unknown, Verified 08/10/23 14:38) RASH peanut [PEANUT] Allergy (Unknown, Verified 08/10/23 14:38) TONGUE SWELLING. TINGLING. 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 She is doing well with no compliance professional concerns. Attempting to eat a healthy diet with calcium and vitamin D and stays active with exercise. She is unsure if she gets enough Vitamin D daily. Currently not sexually active. Denies any vaginal dryness or irritation. Last pap smear; 08/13/22, normal. Last mammogram; 11/23/22, normal. Colonoscopy is UTD. Denies any family history of breast, ovarian or colon cancer. [facility] Medical History History of deviated nasal septum History of irregular heartbeat GERD (gastroesophageal reflux disease) Asthma Surgical History History of urologic surgery History of cardiac radiofrequency ablation (RFA) Hx of carpal tunnel repair Hx of eye surgery Hx of cholecystectomy History of back surgery Family History Father Throat cancer Mother HTN (hypertension) Dementia Family/Other Breast cancer Maternal Grandmother Heart valve replaced Social History Household Members Other:: daughter Housing: House Alcohol intake: current Alcohol intake frequency: holidays/special occasions only Patient Tobacco Use Status: Former Tobacco user Years Smoked: 6 service: No Current occupational status: employed Current occupation: Director Sexual orientation: Straight/Heterosexual Gender identity: Female Female Reproductive History Menstrual Age of Menarche: 13 Total pregnancies: 4 Full term: 3 Number of Living Children: 3 Date of last pap smear: 08/07/22 (neg pap and hpv) Date of Mammogram: 10/30/22 (Birad 0) Review of Systems Const All systems reviewed & are unremarkable except as noted in HPI and below Reports as per HPI Eyes Reports no additional complaints ENT Reports no additional complaints Card Reports no additional complaints Resp Reports no additional complaints GI Reports as per HPI and Reports no additional complaints Reports as per HPI Musc Reports no additional complaints Skin/Breast Reports as per HPI Neuro Reports no additional complaints Psych Reports no additional complaints Endo Reports no additional complaints Angel/Lymph Reports no additional complaints Aller/Immun Reports no additional complaints Physical Exam Vital Signs: Last Vital Signs BP 100/64 08/10/23 14:38 BMI result Body Mass Index 25.5 Const General: cooperative, healthy appearing, no acute distress, well developed and alert Orientation/consciousness: patient oriented x3 HEENT Head: Yes normal to inspection Eyes General: appearance normal, both eyes and all related structures Neck Neck: Yes normal visual inspection Thyroid: Thyroid normal Chest Chest palpation & inspection: normal inspection of the chest and other (no puckering, dimpling, peau de orange, retraction, discharge, masses) Breast/axilla inspection: normal inspection of the breasts Breast/axilla palpation: normal palpation of the breasts Resp Effort & Inspection: normal respiratory effort GI Inspection: Yes normal to inspection Palpation (GI): Soft to palpation Rectal Exam - Female: deferred General: Yes bladder normal to palpation External Female Exam: normal external appearance and normal appearance of the urethra Speculum Exam - Vagina: normal appearance of the vagina (atrophic changes), normal palpation and normal vaginal discharge Speculum Exam - Cervix: normal appearance of the cervix and normal palpation Bimanual exam- vagina & uterus: normal bimanual exam, normal palpation, uterine size normal, bladder normal to palpation, normal palpation and non-tender Bimanual Exam- Adnexa, other: no masses Skin General skin exam: no rashes or lesions noted Rashes: no rashes Neuro General: patient oriented x3 Cognition (Neuro): normal cognition Extrem General: Yes normal to inspection Psych Attitude: cooperative Thought process: Normal thought process present Assessment & Plan Assessment & Plan (1) Encounter for annual routine gynecological examination: Code(s): Z01.419 - Encounter for gynecological examination (general) (routine) without abnormal findings Plan: Discussed: Current recommendations for pap smears per ASCCP guidelines. Breast awareness, periodic self breast exams and yearly mammogram. Maintain a healthy lifestyle, well balanced diet including Calcium 1,200 mg and Vitamin D 600 IU daily, and routine exercise. Contact the office with any postmenopausal bleeding. All of her questions and concerns were addressed to the best of my ability. She will return in one year for AG. Coding Level of Care Code Est Pt Prev Care 40-64y(75575) Diagnoses Encounter for annual routine gynecological examination Z01.419
[2023-08-10 14:38] VITALS: BP 100/64; BMI 25.5
== END 2023-08-10 15:38 | disposition home or self-care (01) ==
PROVIDERS: Visit Provider Advanced Practice Midwife
DX: Z01.419 Encounter for gynecological examination (general) (routine) without abnormal findings (principal)
CPT/HCPCS: 99396

== ENCOUNTER → 2023-08-10 14:35 | Outpatient (BNVA) | payer OTHER, SELFPAY | PROVIDERS: Visit Provider Advanced Practice Midwife ==

== ENCOUNTER → 2024-08-04 11:30 | Outpatient (BNV) | payer OTHER, SELFPAY | PROVIDERS: PCP Nurse Practitioner Family; Visit Provider Internal Medicine | DX: Z12.31 Encounter for screening mammogram for malignant neoplasm of breast (principal) | CPT/HCPCS: 77063; 77067 ==

== ENCOUNTER 2024-08-04 11:35 | Outpatient (REF) | payer OTHER, SELFPAY ==
--- NOTE | ~2024-08-04 | MM_ITS ---
EXAMINATION: MM SCREENING DIGITAL BREAST TOMOSYNTHESIS, BILATERAL CLINICAL INFORMATION: Screening. Asymptomatic. COMPARISON: Mammography: Comparison is made with available priors TECHNIQUE: Digital breast mammography with tomosynthesis is performed in both the craniocaudal and mediolateral oblique views along with computer-aided detection (CAD). FINDINGS: The breasts are heterogeneously dense, which may obscure small masses (ACR BI-RADS breast composition Category c). There are no significant masses, abnormal calcifications, or other abnormalities. MM/MM tomosynthesis screening BI IMPRESSION: No mammographic evidence of malignancy. ASSESSMENT: BI-RADS BI-RADS 1 - Negative RECOMMENDATION: Routine annual mammography screening. 1 year F/U This examination should not preclude the clinical evaluation of a suspicious palpable abnormality. This patient's information was entered into a reminder system with a target due date for their next mammogram. Electronically signed by: Yareli Villafuerte DO 08/15/2024 09:13 AM [place]
== END 2024-08-04 11:36 | disposition home or self-care (01) ==
LOC: HO.MAMMO 11:35
PROVIDERS: PCP Nurse Practitioner Family; Visit Provider Nurse Practitioner Family
DX: Z12.31 Encounter for screening mammogram for malignant neoplasm of breast (principal)
CPT/HCPCS: 77063; 77067

== ENCOUNTER 2024-12-13 12:26 | Emergency (ER) | payer OTHER, SELFPAY ==
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
[2024-12-13 12:35] VITALS: BP 140/90; PULSE 90; O2SAT 99
[2024-12-13 12:38] VITALS: BP 149/73; PULSE 66; RESP 18; TEMP 36.6; O2SAT 98; BMI 26.2
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
[2024-12-13 13:24] LABS: MANUAL DIFF FLAG NO
[2024-12-13 13:25] LABS: Basophils Percent Auto 0.7 % (0-2); Eosinophils Absolute Auto 0.1 X10*3/uL (0.0-0.4); Eosinophils Percent Auto 2.9 % (0-4); Hematocrit 39.2 % (37.0-47.0); Hemoglobin 14.1 g/dl (12.0-16.0); Imm Gran Abs Auto 0.01 X10*3/uL (0.00-0.03); Imm Gran Pct Auto 0.2 % (0.0-0.4); Lymphocytes Absolute Auto 1.4 X10*3/uL (1.2-4.9); Lymphocytes Percent Auto 31.9 % (20-40); Mean Corpuscular Hemoglobin 31.1 pg (27.0-33.0); Mean Corpuscular Volume 86.5 fL (80.0-98.0); Mean Platelet Volume 10.6 fL (9.4-12.3); Monocytes Absolute Auto 0.2 X10*3/uL (0.1-1.2); Monocytes Percent Auto 5.3 % (2-11); Neutrophils Absolute Auto 2.7 x10*3/uL (2.0-8.3); Platelet Count 161 X10*3/uL (160-400); Red Blood Count 4.53 X10*6/uL (4.20-5.50); Red Cell Distribution Width 12.6 % (11.0-16.0); White Blood Count 4.5 X10*3/uL (4.8-10.8)
[2024-12-13] MEDS: Acetaminophen 1,000 MG/100 ML PIGGYBACK 400 MG IV (13:41)
[2024-12-13] MEDS: iohexoL 350 MG/ML 100 ML INFUS..BTL IV (13:42)
[2024-12-13 13:43] LABS: Alanine Aminotransferase 31 U/L (0-31); Albumin Level 4.4 g/dL (3.5-5.0); Alkaline Phosphatase 74 U/L (39-117); Anion Gap 12 (12-20); Aspartate Amino Transferase 30 U/L (5-31); Bilirubin Direct 0.2 mg/dL (0.0-0.5); Bilirubin Total 0.7 mg/dL (0.0-1.0); Blood Urea Nitrogen 15 mg/dL (9-16); Calcium 9.8 mg/dL (8.4-10.2); Carbon Dioxide 23 mmol/L (22-29); Chloride 110 mmol/L (96-108); Creatinine Clr Calc Pharmacy 75.3; Estimated Glomerular Filt Rate > 60; Glucose Random 96 mg/dL (60-115); Potassium 3.5 mmol/L (3.3-5.1); Sodium 141 mmol/L (135-145); Total Protein 7.5 g/dL (6.5-8.0)
[2024-12-13 14:27] VITALS: RESP 15
[2024-12-13] MEDS: Ketorolac Tromethamine 15 MG/ML VIAL IVPUSH (15:22)
[2024-12-13] MEDS: Lactated Ringers 500 ML 999 ML IV (15:50)
[2024-12-13 17:26] VITALS: BP 129/60; PULSE 51; RESP 18; TEMP 36.5; O2SAT 98
[2024-12-13 19:53] VITALS: BP 131/66; PULSE 57; RESP 16; TEMP 36.6; O2SAT 97
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
[2024-12-13] MEDS: Silver Sulfadiazine 1 % Cream 20 GM TUBE 1 APPL TOPICAL (20:00)
[2024-12-13] MEDS: methocarbamoL 750 MG TABLET PO (20:00)
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
[2024-12-13 21:01] VITALS: BP 131/66; PULSE 57; RESP 16; TEMP 36.6; O2SAT 97
== END 2024-12-13 21:01 | disposition home or self-care (01) ==
PROVIDERS: Physician Assistant Medical; Emergency Provider Emergency Medicine; PCP Nurse Practitioner Family
DX: S13.4XXA Sprain of ligaments of cervical spine, initial encounter (principal); S70.02XA Contusion of left hip, initial encounter; S49.92XA Unspecified injury of left shoulder and upper arm, initial encounter; R10.2 Pelvic and perineal pain; M25.512 Pain in left shoulder; R51.9 Headache, unspecified; M54.2 Cervicalgia; E04.1 Nontoxic single thyroid nodule; R11.0 Nausea; R07.89 Other chest pain; M79.605 Pain in left leg; M79.604 Pain in right leg; V43.52XA Car driver injured in collision with other type car in traffic accident, initial encounter; Y93.9 Activity, unspecified; Y92.410 Unspecified street and highway as the place of occurrence of the external cause; Y99.8 Other external cause status; Z87.891 Personal history of nicotine dependence; Z79.899 Other long term (current) drug therapy
CPT/HCPCS: 36415; 70450; 71260; 72125; 73030; 73502; 73552; 73590; 73610; 74177; 80048; 80076; 85025; 86850; 86900; 86901; 96365; 96366; 96375; 99284; J0131; J1885; J7120; Q9967

== ENCOUNTER → 2024-12-13 12:58 | Outpatient (BNV) | payer OTHER, SELFPAY | PROVIDERS: Emergency Provider Emergency Medicine; PCP Nurse Practitioner Family; Visit Provider Radiology Diagnostic Radiology | DX: M54.2 Cervicalgia (principal); R51.9 Headache, unspecified; M25.512 Pain in left shoulder; M79.605 Pain in left leg; M79.604 Pain in right leg; R07.9 Chest pain, unspecified; R10.9 Unspecified abdominal pain; M25.552 Pain in left hip; M25.572 Pain in left ankle and joints of left foot; V49.40XA Driver injured in collision with unspecified motor vehicles in traffic accident, initial encounter | CPT/HCPCS: 70450; 71260; 72125; 73030; 73502; 73552; 73590; 73610; 74177 ==

== ENCOUNTER 2024-12-28 08:24 | Emergency (ER) | payer OTHER, SELFPAY ==
--- NOTE | ~2024-12-28 | CT_ITS ---
EXAMINATION: CT ABDOMEN AND PELVIS WITH CONTRAST CLINICAL INFORMATION: Left flank pain, left lower quadrant pain, left hip pain. 59-year-old female. COMPARISON: 12/13/2024. TECHNIQUE: Multidetector volumetric images were obtained from the superior aspect of the liver through the pubic symphysis following administration 85 mL of Omnipaque 350 intravenous contrast. Sagittal and coronal reformatted images were obtained on the technologist's workstation. Oral contrast: No This CT examination was performed using dose optimization techniques as appropriate, variously including the following: *Automated exposure control *Adjustment of mA and/or kV according to patient size (this includes techniques or standardized protocols for targeted exams where dose is matched to indication/reason for exam; i.e. extremities or head) *Use of iterative reconstruction technique FINDINGS: LUNG BASES: Lung bases are clear. There are no effusions. Normal GE junction. Normal heart size. LIVER, GALLBLADDER, AND BILIARY TREE: The liver is normal in size, shape, and attenuation. No focal hepatic lesion or biliary ductal dilatation is present. Gallbladder is surgically absent. PANCREAS: Unremarkable. SPLEEN: Unremarkable. ADRENAL GLANDS: Unremarkable. KIDNEYS AND URETERS: The kidneys are normal in size, shape, and attenuation. No hydronephrosis, hydroureter, or calculi seen. No perinephric stranding. BLADDER: Unremarkable. GASTROINTESTINAL TRACT: Mild diverticulosis of the sigmoid colon. No colonic wall thickening or inflammation. Normal caliber and course. Normal appendix. Stomach is somewhat decompressed. Duodenum appears normal. Small bowel is normal in caliber and course without focal abnormality. PERITONEUM: No free air. No ascites. ABDOMINAL WALL: No significant hernia is appreciated. LYMPH NODES: None enlarged by size criteria. VASCULAR: Unremarkable. PELVIC VISCERA: The uterus and adnexa are unremarkable. OSSEOUS STRUCTURES: No suspicious lytic or blastic bone lesions. No fractures evident. Mild arthritis in the right greater than left SI joints. Mild arthritis in the lower lumbar spine. CT/CT abdomen pelvis w IV con IMPRESSION: 1. No acute findings in the abdomen or pelvis. 2. Mild diverticulosis of the sigmoid colon without acute diverticulitis. 3. Cholecystectomy. 4. Ancillary findings as discussed in the body of the report. Electronically signed by: Musa Guaman MD 12/28/2024 11:14 AM EDT
[2024-12-28 08:29] VITALS: BP 138/64; PULSE 71; RESP 20; TEMP 36; O2SAT 99; BMI 26.6
--- OUTSIDE RECORDS SUMMARY | 2024-12-28 09:11 | XMS_ITS | Data Portability ---
Author Organization [facility], [address] Address [address] [place] [address] Assessment No assessment recorded. Plan of Treatment Reminders Order Date Submit Date Provider Last Modified By Organization Details Last Modified Time Details Appointments None recorded. Lab rapid strep group A, throat 2022 023 [place] [address] [facility], [address] [place] [address], [phone], 3 09:49:18 rapid flu (A+B) 2022 023 [place] [address] [facility], [address] [place] [address], [phone], 3 09:49:17 streptococc us group A, culture, throat 2022 023 [place] [facility], [address] [place] [address], [place], [address], 3 08:09:00 Referral None recorded. Procedures None recorded. Surgeries None recorded. Imaging None recorded. Medication Orders prednisone [address] [id number], [address] [facility], [place], [address], 3 09:49:21 benzonatate 100 [address] capsule [address] [id number], [address] [place], [address], 3 09:49:21 Zithromax Z-Markos 250 mg tablet [address] [id number], [address] [facility], [place], [address], 3 09:49:21 Lidocaine Viscous 2 % mucosal solution [address] [id number], [address] [facility], [place], [address], 3 09:49:22 Patient TargetsNo targets recorded. Patient Instructions Encounter Date Encounter Id Patient Instructions Last Modified By Organization Details Last Modified Time 02/02/2023 [id number] sore throat: car e instructions skealy2 Not available 02/02/2023 09:49:47 Reason for Referral None Reported. Results Created Date Observation Date Name Description Value Unit Range Abnormal Flag Note LastModifiedBy Organization Detail LastModifiedTime 02/03/2002/05/2023 BETA STREP GP A CULTU RE beta strep gp A culture NEGATI VE Refer ence Range : Negat ross Not Available [facility] ([facility]) [address], [place], [address], 02/05/2023 08:09:00 02/03/20 23 02/02/2023 rapid flu (A+B) Unknown Analyte Normal = Negati ve Not Available delmi lara [address], [address], 02/02/2023 09:47:05 02/03/20 23 02/02/2023 rapid flu (A+B) Unknown Analyte negati ve Not Available [address] lar[place] [address] [place], [address], 02/02/2023 09:47:05 02/03/20 23 02/02/2023 rapid flu (A+B) Unknown Analyte Normal = Negati ve Not Available delmi lara [address], [address], 02/02/2023 09:47:05 02/03/20 23 02/02/2023 rapid flu (A+B) Unknown Analyte negati ve Not Available [address] [place] [address], [address], 02/02/2023 09:47:05 02/03/20 23 02/02/2023 rapid strep group A, throa t Unknown Analyte Normal = Negati ve Not Available [address] [place] [address], [address], 02/02/2023 09:47:03 02/03/2002/02/2023 rapid strep group A, throa t Unknown Analyte negati ve Not Available [address] [place] [address], [address], 02/02/2023 09:47:03 Result Notes None recorded. Problems Name Problem SNOMED Code Status Onset Date Resolution Date Notes Provider Name and Address Organization Details Recorded Time Asthma 488701645 Active 023 IRIS COUVERTIER null, PA - [facility] 02/02/2023 08:57:47 Problem Notes None recorded. Procedures Surgical History Date Name Laterality Status Provider Name and Address Organization Details Recorded Time cholecystectomy completed IRIS COUVERTIER PA - [facility] 02/02/2023 08:58:31 Carpal tunnel surgery completed IRIS COUVERTIER PA - [facility] 02/02/2023 08:59:32 Imaging Results None recorded. Procedure Notes None recorded. Medical Equipment None Reported. Allergies Allergen ID Allergen Name Allergen Category Reaction Reaction Severity Criticality Documentation Date Start Date Code Code System Note Provider Name and Address Organization Details Recorded Time 783487 Product containin g penicilli n (product) medicatio n Not available Not available Not available 02/02/2023 89480 8001 SNOMED IRIS COUVERTIE R null, PA - [facility] 08:56:39 515786 acetamino phen / oxycodone medicatio n vomiting Not available Not available 02/02/2023 60115 3 RxNorm JUAN davis PA - [facility] 3 08:56:55 Medications Name Sig Start Date Stop Date Status Note LastModified by Organization Details LastModified Time albuterol sulfate 0.63 mg/3 mL solution for nebulization 0.63 MG (3 ML) INHALED 4 TIMES A DAY NEEDED FOR BRONCHOSPAS M active Not Available Not Available No t Available Lidocaine Viscous 2 % mucosal solution Take 15 mL every 4 hours by oral route for 3 days. 2022 active Not Available Not Available Not Avai lable prednisone 20 mg tablet Take 2 tablets every day by oral route for 5 days. 2022 active Not Available Not Available Not Avai lable Zithromax Z-Markos 250 mg tablet TAKE 2 TABLETS (500 MG) BY ORAL ROUTE ONCE DAILY FOR 1 DAY THEN 1 TABLET (250 MG) BY ORAL ROUTE ONCE DAILY FOR 4 DAYS 2022 active Not Available Not Available Not Avai lable benzonatate 100 mg capsule Take 1 capsule 3 times a day by oral route for 5 days. 2022 active Not Available Not Available Not Avai lable epinephrine 0.3 mg/0.3 mL injection, auto-injecto r INJECT 0.3 MG INTRAMUSCUL [place] ONCE active Not Available Not Available No t Available albuterol sulfate HFA 90 mcg/actuatio n aerosol inhaler INHALE 2 PUFFS BY MOUTH EEVRY 6 HOURS NEEDED FOR WHEEZING active Not Available Not Available No t Available Symbicort 160 mcg-4.5 mcg/actuatio n HFA aerosol inhaler Inhale 2 puffs twice a day by inhalation route. active Not Available Not Available No t Available Vitals Date Recorded Body height Body mass index (BMI) Body weight Body temperature Respiratory rate Heart rate Oxygen saturation Oxygen saturation in Arterial blood by Pulse oximetry Systolic blood pressure Diastolic blood pressure Provider Name and Address Organization Details Last Updated DateTime 3 160.02 cm 24.8 kg/m2 85266.9 3 g 98.4 [degF] 20 /min 60 /min 100 % 100 % 116 mm[Hg] 72 mm[Hg] JUAN Muhammad PA - [facility] 3 09:01:23 Social History Question Answer Notes LastModified by Organizat ion Details LastModified Time Tobacco Smoking Status Former Smoker MARAH Greenfield - [facility] 02/02/2023 08:58:07 What Is Your Level Of Alcohol Consumption? None Information not available 02/02/2023 What Is Your Water Source? City Information not available 02/02/2023 What Is Your Heat Source? Other Information not available 02/02/2023 Have You Had Direct Contact, Or Contact During Intimacy, With Monkeypox Rash, Scabs, Or Body Fluids From A Person With Monkeypox? No Information not available 02/02/2023 Do You Use Any Illicit Or Recreational Drugs? No Information not available 02/02/2023 Have You Recently Traveled Abroad? No Information not available 02/02/2023 Do You Or Have You Ever Used Any Other Forms Of Tobacco Or Nicotine? No Information not available 02/02/2023 Sex: Unknown Functional Status None recorded. Mental Status None recorded. Family History Relationship Description Onset Age of this Age Resolved Age Notes LastModified by Organization Details LastModified Time Father No current problems or disability Not available 08:57:54 Mother No current problems or disability Not available 08:57:54 Medical History No medical history recorded. Gynecological HistoryNo gynecological history recorded. Obstetrics History GPAL:G 0 P 0 0 0 0 Past Encounters Encounter ID Performer Location Encounter Start Date Encounter Closed Date Diagnosis/Indication Diagnosis SNOMED-CT Code Diagnosis ICD10 Code Diagnosis Note [id number] [facility] [address] [place] [address] 10/08/2019 12:48:02 10/08/2019 14:07:42 [id number] [address] [place] [address] 06/29/2021 14:39:06 06/29/2021 15:35:37 [id number] [facility] [address] [place] [address] 07/17/2019 18:37:15 07/17/2019 19:58:59 [id number] Gunner Lofton MD [facility] [address] [place] [address] 02/02/2023 08:08:48 02/02/2023 09:50:22 Acute pharyngitis 408144068 J02.9 Use over the counter medication s for your sore throat. Basic lozenges (cough drops) or lozenges with an anesthetic (numbing agent) can be used as needed for quick results; look for the active ingredient , benzocaine , for numbing lozenges (like Cepacol Extra or Chlorasept ic Max). Gargling with warm salt water can also relieve pain. Dissolve 1/4 to 1/2 teaspoon in 8-ounces of warm water; gargle and spit salt solution every hour, as needed. Sore throat pain can also be reduced by taking regular doses of acetaminop hen (tylenol) or ibuprofen (Advil); if you are given a prescripti on of PREDNISONE , you may continue to take acetaminop hen, but do not take ibuprofen or naprosyn. While this isn't quick, it can significan tly reduce pain within an hour after taking. Please consult our office promptly if you develop any of the following symptoms: 1. A fever of at least 101??F or 38.4??C2. Throat pain that is severe or does not start to improve within 5 to 7 days Call for an ambulance or go to the emergency room if you:1. Have trouble breathing2 . Cannot control your saliva (drooling) due to difficulty swallowing 3. Have swelling of the neck or tongue4. Cannot move your neck or have trouble opening your mouth Exacerbati on of moderate persistent asthma 803463801 J45.41 Health Concerns Section Related Observation LastModified by Organization Detai ls LastModified Time None Recorded Concern Status LastModified by Organization Details LastModified Time None Recorded Advance Directives Directive None Recorded Payers Encounter Date Sequence Insurance Name Policy Number Policy Kim Covered Member ID Kim Member ID Guarantor Name 07/17/2019 1 [facility] [id number] [place] [id number] Flaquita Briceño 10/08/[address] [place] [address] [id number] Flaquita Briceño [id number] Flaquita Briceño 06/29/[address] [place] [address] [id number] Flaquita Briceño [id number] Flaquita Briceño 02/02/2023 1 [facility] [id number] Flaquita Briceño [id number] Flaquita Briceño Notes Date Note Type Note Provider Name and Address Organization Details Recorded Time 02/02/2023 text/html Sore throatRepor elvira bypatient.Location:t hroat Severity:moderate Quality:hurts to swallow Onset/Timin days Associated Symptoms:sore throat;coughing Gunner Lofton MD [facility] [place], [address], [place] - [facility] 02/02/2023 10:04:50 OBGyn Episode No OBEpisode recorded.
--- OUTSIDE RECORDS SUMMARY | 2024-12-28 09:12 | XMS_ITS ---
Author Organization [facility] Address [address] [place] [address] Care Team Providers Care Qualification Engineer Name Role Phone Lyle REYNA, [place] Primary Care Provider Unava Calderon Bowden [phone] Encounters Encounter Location Date Provider Diagnosis [facility] [address] [place] [address] 09/01/2024 Calderon Blankenship Plan Of Treatment Next Appt Details Provider Name:Calderon Blankenship , 01/04/2025 09:40:00 AM, [address], [address], [place], [address], Progress Notes * CLARA MENDIETA ADOB:1964 (59 yo F)Acc No.[id number]:09/01/2024 Patient:?CLARA MENDIETA :1965???Age:59 Y???Sex:Female Address:[address] [place] [address] * true * Date:? Generated for Meredithi rosita/Hill/eTransmitting on:?12/28/2024 09:11 AM EDT
--- OUTSIDE RECORDS SUMMARY | 2024-12-28 09:12 | XMS_ITS | Patient Health Record ---
Author Organization [facility] Address [address] [place] [address] Care Team Providers Care Web Production Artist Name Role Phone Lyle REYNA, [place] Primary Care Provider Unava Calderon Bowden Unavailable [phone] Allergies Allergen (clinical drug ingredient) Drug/Non Drug Allergy documented on EMR Reaction Allergy Type Onset Date Status metronidazole Metronidazole Unknown Drug Allergy Active Codeine Phosphate Unknown Drug Allergy Active clindamycin Clindamycin HCl Unknown Drug Allergy Active amoxicillin Amoxicillin Unknown Drug Allergy Act ross Nuts and Wheat (uncoded) Unknown Allergy Active acetaminophen / oxycodone Percocet Unknown Drug Allergy Active Reason For Referral No Information Medications Medication SIG (Take, Route, Fr equency, Duration) Notes Start Date End Date Status Symbicort Active Flonase Active LORazepam 1mg At QHS Not-Ta charan PriLOSEC OTC PRN Active Albuterol 17g Active Social History Alcohol Screen Question Answer Notes Did you have a drink contain ing alcohol in the past year? Yes How often did you have a dri nk containing alcohol in the past year? Monthly or less (1 point) How many drinks did you have on a typical day when you were drinking in the past year? 1 or 2 drinks (0 point) Points 1 Interpretation Negative Section Notes: She does not smoke or use an y significant amounts of alcohol She does not smoke or use an y significant amounts of alcohol She does not smoke or use an y significant amounts of alcohol She does not smoke or use an y significant amounts of alcohol Problems Problem Type SNOMED Code ICD Code Onset Dates Problem Status W/U Status Risk Notes Problem 1856756 Diverticulitis o f large intestine without perforation or abscess without bleeding (K57.32) Active confirmed Problem 615813493 Encounter for screening for malignant neoplasm of colon (Z12.11) Active confirmed Problem 69894113 Iron deficiency anemia, unspecified iron deficiency anemia type (D50.9) Active confirmed Encounters Encounter Location Date Provider Diagnosis [facility] [address] [place] [address] 09/01/2024 Calderon Blankenship Plan Of Treatment Pending Test Test Name Order Date IRON + IBC (FE) 11/19/2017 FERRITIN 11/19/2017 FOLATE 09/03/2017 CBC w DIFF 11/19/2017 CELIAC PANEL #10 09/03/2017 Future Test Test Name Order Date COLONOSCOPY 03/17/2017 UPPER GI ENDOSCOPY 11/19/2017 Next Appt Details Provider Name:Calderon Blankenship , 01/04/2025 09:40:00 AM, [address], [address], [place], [address], Insurance Providers Payer Name Payer Address Payer Phone Subscriber Number Group Number Insured Name Patient Relationship to Insured Coverage Start Date Coverage End Date Diversified [place] [address] [place] [phone] [id number] CLARA MENDIETA Self - patient is the insured Medical (General) History Medical History History ICD Code GERD--uses OTC meds prn--EGD in 2007--duodenal biopsies at that time revealed nonspecific focal villous blunting and mild increase of intraepithelial lymphocytes--celiac disease labs were negative at that time C. difficile infection Sinusitis Asthma Seasonal allergies Denies any history of heart disease, catalina betes, stroke, nor kidney disease Cardiac ablation in 2012 for A.fib-succe ssful Diverticulitis in Spring 2016 Colonoscopy in 04/2017--small tubular abd omen removed, diverticulosis Iron deficiency anemia in No 2016--Hemoccult cards were negative in August 2017, negative laboratories for celiac disease Surgical History Surgery Date(Month/Year) cholecystectomy nasal surgery back surgery for disc disease carpal tunnel release and trigger finger 2015
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
[2024-12-28 09:57] LABS: Appearance Urine Clear; Color Urine Yellow; Glucose Urine UA Negative (Negative); Leukocyte Esterase Urine Trace (Negative); Nitrite Urine Negative (Negative); UMIC TRIGGER UACC YES; Urine Blood Negative (Negative); Urine Ketones Negative (Negative); Urine Protein Negative (Neg-Trace)
[2024-12-28 09:59] LABS: Bacteria Urine None Seen (None Seen); Hyaline Casts Urine 0-2 /LPF (0-2); RBC Urine 0-2 /HPF (0-2); Squamous Epithelial Cell Urine 0-2 /HPF (0-2); WBC Urine 0-5 /HPF (0-5)
[2024-12-28 10:10] LABS: MANUAL DIFF FLAG NO
[2024-12-28] MEDS: ondansetron HCL 4 MG/2 ML VIAL IVPUSH (10:10)
[2024-12-28] MEDS: Ketorolac Tromethamine 30 MG/ML VIAL IVPUSH (10:10)
[2024-12-28] MEDS: 0.9 % Sodium Chloride 1,000 ML 999 ML IV (10:10)
[2024-12-28 10:13] LABS: Basophils Percent Auto 0.7 % (0-2); Eosinophils Absolute Auto 0.2 X10*3/uL (0.0-0.4); Hematocrit 38.9 % (37.0-47.0); Hemoglobin 13.9 g/dl (12.0-16.0); Imm Gran Abs Auto 0.03 X10*3/uL (0.00-0.03); Imm Gran Pct Auto 0.5 % (0.0-0.4); Lymphocytes Absolute Auto 1.2 X10*3/uL (1.2-4.9); Lymphocytes Percent Auto 20.6 % (20-40); Mean Corpuscular HGB Conc 35.7 g/dl (31.0-35.0); Mean Corpuscular Hemoglobin 31.1 pg (27.0-33.0); Mean Platelet Volume 9.9 fL (9.4-12.3); Monocytes Absolute Auto 0.3 X10*3/uL (0.1-1.2); Monocytes Percent Auto 4.5 % (2-11); Neutrophils Percent Auto 70.7 % (45-73); Platelet Count 199 X10*3/uL (160-400); Red Blood Count 4.47 X10*6/uL (4.20-5.50); Red Cell Distribution Width 12.6 % (11.0-16.0); White Blood Count 5.7 X10*3/uL (4.8-10.8)
[2024-12-28 10:33] LABS: Alanine Aminotransferase 38 U/L (0-31); Albumin Level 4.4 g/dL (3.5-5.0); Alkaline Phosphatase 91 U/L (39-117); Anion Gap 11 (12-20); Aspartate Amino Transferase 26 U/L (5-31); Bilirubin Total 0.8 mg/dL (0.0-1.0); Blood Urea Nitrogen 16 mg/dL (9-16); Calcium 9.4 mg/dL (8.4-10.2); Carbon Dioxide 22 mmol/L (22-29); Chloride 109 mmol/L (96-108); Creatinine Clr Calc Pharmacy 81.3; Estimated Glomerular Filt Rate > 60; Glucose Random 97 mg/dL (60-115); Lipase 49 U/L (8-78); Magnesium 2.1 mg/dL (1.6-2.6); Potassium 3.9 mmol/L (3.3-5.1); Sodium 138 mmol/L (135-145); Total Protein 7.1 g/dL (6.5-8.0)
[2024-12-28] MEDS: iohexoL 350 MG/ML 100 ML INFUS..BTL IV (10:40)
[2024-12-28 10:52] VITALS: BP 126/56; PULSE 66; RESP 16; TEMP 36.5; O2SAT 100
[2024-12-28] MEDS: Acetaminophen 1,000 MG/100 ML PIGGYBACK 400 MG IV (11:05)
[2024-12-28 12:13] VITALS: BP 131/63; PULSE 60; RESP 16; TEMP 36.6; O2SAT 98
[2024-12-28 12:22] VITALS: BP 128/66; PULSE 62; RESP 16; TEMP 36.6; O2SAT 98
== END 2024-12-28 12:47 | disposition home or self-care (01) ==
PROVIDERS: Physician Assistant Medical; Emergency Provider Emergency Medicine; PCP Nurse Practitioner Family
DX: Z04.1 Encounter for examination and observation following transport accident (principal); M47.898 Other spondylosis, sacral and sacrococcygeal region; K59.00 Constipation, unspecified; R10.32 Left lower quadrant pain; Z79.899 Other long term (current) drug therapy
CPT/HCPCS: 36415; 74177; 80053; 81001; 83690; 83735; 85025; 96361; 96365; 96366; 96375; 99284; J0131; J1885; J2405; Q9967

== ENCOUNTER → 2024-12-28 09:55 | Outpatient (BNV) | payer OTHER, SELFPAY | PROVIDERS: Emergency Provider Emergency Medicine; PCP Nurse Practitioner Family; Visit Provider Radiology Diagnostic Radiology | DX: M25.552 Pain in left hip (principal); R10.32 Left lower quadrant pain | CPT/HCPCS: 74177 ==

== ENCOUNTER 2025-02-20 08:10 | Outpatient (AMB) | payer OTHER, SELFPAY ==
--- NOTE | 2025-02-20 08:12 | MHC.OFFVIS ---
Vital Signs 02/20/25 08:13 Height 5 ft 3 in Weight 152 lb BMI 26.9 BP 100/64 Intake Visit Reasons: COMMUNITY RELATIONS REP annual exam Wheel Press Operator: Wheel Press Operator Present (Janae) Allergies Penicillins [PENICILLINS] Allergy (Intermediate, Verified 02/20/25 08:13) RASH amoxicillin Allergy (Unknown, Verified 02/20/25 08:13) Rash hydrocodone [Vicodin] Allergy (Unknown, Verified 02/20/25 08:13) Rash oxycodone [From PERCOCET] Allergy (Unknown, Verified 02/20/25 08:13) RASH peanut [PEANUT] Allergy (Unknown, Verified 02/20/25 08:13) TONGUE SWELLING. TINGLING. SOB penicillin V Allergy (Unknown, Verified 02/20/25 08:13) Rash tramadol Allergy (Unknown, Verified 02/20/25 08:13) Rash bee pollen [bee stings] Allergy (Verified 02/20/25 08:13) Unknown honey Allergy (Verified 02/20/25 08:13) Unknown Codeine Phosphate Allergy (Unknown, Uncoded 12/13/24 12:41) Rash peanuts Allergy (Unknown, Uncoded 12/13/24 12:41) Anaphylaxis HPI Comments Details: She is a postmenopausal woman presenting for her annual sustainability analyst examination. She is doing well with no sustainability analyst concerns. Currently not sexually active. Denies any vaginal dryness or irritation. STI testing offered; she declines. Attempting to eat a healthy diet with calcium and vitamin D, no regular exercise since injury. Last pap smear; 2021. Last mammogram; 2023. Denies any family history of ovarian or colon cancer. FH breast cancer PFSH Medical History History of deviated nasal septum History of irregular heartbeat GERD (gastroesophageal reflux disease) Asthma Surgical History History of urologic surgery History of cardiac radiofrequency ablation (RFA) Hx of carpal tunnel repair Hx of eye surgery Hx of cholecystectomy History of back surgery Family History Father Throat cancer Mother HTN (hypertension) Dementia Family/Other Breast cancer Maternal Grandmother Heart valve replaced Social History Household Members Other:: daughter Housing: House Alcohol intake: current Alcohol intake frequency: a few times a month Patient Tobacco Use Status: Former Tobacco user Years Smoked: 6 service: No Current occupational status: employed Current occupation: Director Sexual orientation: Straight/Heterosexual Gender identity: Female Female Reproductive History Menstrual Age of Menarche: 13 Total pregnancies: 4 Full term: 3 Number of Living Children: 3 Date of last pap smear: 08/07/22 (neg pap and hpv) Date of Mammogram: 08/04/24 (Birad 1) Review of Systems Const All systems reviewed & are unremarkable except as noted in HPI and below Reports as per HPI Eyes Reports no additional complaints ENT Reports no additional complaints Card Reports no additional complaints Resp Reports no additional complaints GI Reports as per HPI and Reports no additional complaints Reports as per HPI Musc Reports no additional complaints Skin/Breast Reports as per HPI Neuro Reports no additional complaints Psych Reports no additional complaints Endo Reports no additional complaints Angel/Lymph Reports no additional complaints Aller/Immun Reports no additional complaints Physical Exam Vital Signs: Last Vital Signs BP 100/64 02/20/25 08:13 BMI result Body Mass Index 26.9 Const General: cooperative, healthy appearing, no acute distress, well developed and alert Orientation/consciousness: patient oriented x3 HEENT Head: Yes normal to inspection Eyes General: appearance normal, both eyes and all related structures Neck Neck: Yes normal visual inspection Thyroid: Thyroid normal Chest Chest palpation & inspection: normal inspection of the chest and other (no puckering, dimpling, peau de orange, retraction, discharge, masses) Breast/axilla inspection: normal inspection of the breasts Breast/axilla palpation: normal palpation of the breasts Resp Effort & Inspection: normal respiratory effort GI Inspection: Yes normal to inspection Palpation (GI): Soft to palpation Rectal Exam - Female: deferred General: Yes bladder normal to palpation External Female Exam: normal external appearance and normal appearance of the urethra Speculum Exam - Vagina: normal appearance of the vagina, normal palpation, normal vaginal discharge and vagina atrophic Speculum Exam - Cervix: normal appearance of the cervix and normal palpation Bimanual exam- vagina & uterus: normal bimanual exam, normal palpation, uterine size normal, bladder normal to palpation, normal palpation and non-tender Bimanual Exam- Adnexa, other: no masses Skin General skin exam: no rashes or lesions noted Rashes: no rashes Neuro General: patient oriented x3 Cognition (Neuro): normal cognition Extrem General: Yes normal to inspection Psych Attitude: cooperative Thought process: Normal thought process present Assessment & Plan Assessment & Plan (1) Encounter for annual routine gynecological examination: Code(s): Z01.419 - Encounter for gynecological examination (general) (routine) without abnormal findings Category: Medical Plan Discussed: Current recommendations for pap smears per ASCCP guidelines. Breast awareness, periodic self breast exams and yearly mammogram. Maintain a healthy lifestyle, well balanced diet including Calcium 1,200 mg and Vitamin D 600 IU daily, and routine exercise. Use of condoms for STI prevention if indicated. Contact the office with any postmenopausal bleeding. Patient verbalizes understanding and agrees to the plan of care. She was given opportunity to ask questions and all questions were answered to the best of my ability. RTO in 1 year for annual sustainability analyst exam. This note is constructed using voice recognition software. While every effort has been made to ensure accuracy, high school music teacher errors may have been included. Coding Level of Care Code Est Pt Prev Care 40-64y(60989) Diagnoses Encounter for annual routine gynecological examination Z01.419
[2025-02-20 08:13] VITALS: BP 100/64; BMI 26.9
--- OUTSIDE RECORDS SUMMARY | 2025-02-20 08:13 | XMS_ITS | Data Portability ---
Author Organization [facility] Vizcaino [facility], [address] Address [address] [place] [address] Assessment No assessment recorded. Plan of Treatment Reminders Order Date Submit Date Provider Last Modified By Organization Details Last Modified Time Details Appointments None recorded. Lab rapid strep group A, throat 2022 023 [place] [address], [address] [place] [address], [address], 3 09:49:18 rapid flu (A+B) 2022 023 [place] [address] [facility], [address] [place] [address], [address], 3 09:49:17 streptococc us group A, culture, throat 2022 023 [facility], [address] [place] [address], [place], [address], 3 08:09:00 Referral None recorded. Procedures None recorded. Surgeries None recorded. Imaging None recorded. Medication Orders prednisone 20 mg tablet 2022 023 [facility][id number], [address] [facility], [place], [address], 3 09:49:21 benzonatate 100 mg capsule 2022 023 [facility] #[id number], [address] [place], [address], 3 09:49:21 Zithromax Z-Markos 250 mg tablet 2022 023 [facility] #2339, [address] [facility], [place], [address], 3 09:49:21 Lidocaine Viscous 2 % mucosal solution 2022 023 [facility] #2339, [address] [facility], [place], [address], 3 09:49:22 Patient TargetsNo targets recorded. Patient Instructions Encounter Date Encounter Id Patient Instructions Last Modified By Organization Details Last Modified Time 02/02/2023 [id number] sore throat: car e instructions [email or web address] Not available 02/02/2023 09:49:47 Reason for Referral None Reported. Results Created Date Observation Date Name Description Value Unit Range Abnormal Flag Note LastModifiedBy Organization Detail LastModifiedTime 02/03/2002/05/2023 BETA STREP GP A CULTU RE beta strep gp A culture NEGATI VE Refer ence Range : Negat ross Not Available [facility] ([facility]) [address] [facility], [place], [address], 02/05/2023 08:09:00 02/03/20 23 02/02/2023 rapid flu (A+B) Unknown Analyte Normal = Negati ve Not Available delmi lara [address], [address], 02/02/2023 09:47:05 02/03/20 23 02/02/2023 rapid flu (A+B) Unknown Analyte negati ve Not Available [address]delmi lara [address] [place], [address], 02/02/2023 09:47:05 02/03/20 23 02/02/2023 rapid flu (A+B) Unknown Analyte Normal = Negati ve Not Available delmi lara [address], [address], 02/02/2023 09:47:05 02/03/20 23 02/02/2023 rapid flu (A+B) Unknown Analyte negati ve Not Available [address] [place] [address], [phone], 02/02/2023 09:47:05 02/03/20 23 02/02/2023 rapid strep group A, throa t Unknown Analyte Normal = Negati ve Not Available [address] [place] [address], [phone], 02/02/2023 09:47:03 02/03/2002/02/2023 rapid strep group A, throa t Unknown Analyte negati ve Not Available [address] [place] [address], [address], 02/02/2023 09:47:03 Result Notes None recorded. Problems Name Problem SNOMED Code Status Onset Date Resolution Date Notes Provider Name and Address Organization Details Recorded Time Asthma 697833133 Active 023 IRIS COUVERTIER null, PA - [...] Name and Address Organization Details Recorded Time 528060 Product containin g penicilli n (product) medicatio n Not available Not available Not available 02/02/2023 11508 8001 SNOMED IRIS COUVERTIE R null, [place] - [facility] 08:56:39 720432 acetamino phen / oxycodone medicatio n vomiting Not available Not available 02/02/2023 65698 3 RxNorm JUAN davis, [place] - [facility] 3 08:56:55 Medications [...] in Arterial blood by Pulse oximetry Systolic And Diastolic Provider Name and Address Organization Details Last Updated DateTime 3 160.02 cm 24.8 kg/m2 60969.9 3 g 98.4 [degF] 20 /min 60 /min 100 % 100 % 116/72 mm[Hg] JUAN Muhammad PA - [facility] 3 09:01:23 Social History Question Answer Notes LastModified by Organizat ion Details LastModified Time Tobacco Smoking Status Former Smoker MARAH [place] - [facility] 02/02/2023 08:58:07 What Is Your Water Source? City Information not available 02/02/2023 What Is Your Heat Source? Other Information not available 02/02/2023 Have You Had Direct Contact, Or Contact During Intimacy, With Monkeypox Rash, Scabs, Or Body Fluids From A Person With Monkeypox? No Information not available 02/02/2023 Have You Recently Traveled Abroad? No Information not available 02/02/2023 Sex: Unknown Functional Status Question Answer Note LastModified by Organizat ion Details LastModified Time Do you use any illicit or recreational drugs? No Information not available 02/02/2023 Do you or have you ever used any other forms of tobacco or nicotine? No Information not available 02/02/2023 What is your level of alcohol consumption? None Information not available 02/02/2023 Mental Status None recorded. Family History Relationship [...] SNOMED-CT Code Diagnosis ICD10 Code Diagnosis Note [id number] [facility] [facility] [address] [place] [address] 10/08/2019 12:48:02 10/08/2019 14:07:42 [id number] [address] [place] [address] 06/29/2021 14:39:06 06/29/2021 15:35:37 [id number] [address] [place] [address] 07/17/2019 18:37:15 07/17/2019 19:58:59 [id number] Gunner Lofton MD [address] [place] [address] 02/02/2023 08:08:48 02/02/2023 09:50:22 Acute pharyngitis 573287301 J02.9 Use over the counter medication s [...] mouth Exacerbati on of moderate persistent asthma 785209870 J45.41 Health Concerns Section Related Observation LastModified by Organization Detai ls LastModified Time None Recorded Concern Status LastModified by Organization Details LastModified Time None Recorded Advance Directives Directive None Recorded Payers Insurance Date Sequence Insurance Name Policy Number Policy Kim Covered Member ID Kim Member ID Guarantor Name 02/02/[address] [place] [address] [id number] Flaquita Briceño [id number] Flaquita Briceño Notes Date Note Type Note Provider Name and Address Organization Details Recorded Time 02/02/2023 text/html Sore throatRepor elvira bypatient.Location:t hroat Severity:moderate Quality:hurts to swallow Onset/Timin days Associated Symptoms:sore throat;coughing uGnner Lofton MD [address] [place] [address] [place], [address], [place] - [facility] 02/02/2023 10:04:50 OBGyn Episode No OBEpisode recorded.
== END 2025-02-20 10:38 | disposition home or self-care (01) ==
LOC: HO.HWS 08:10
PROVIDERS: PCP Nurse Practitioner Family; Visit Provider Advanced Practice Midwife
DX: Z01.419 Encounter for gynecological examination (general) (routine) without abnormal findings (principal)
CPT/HCPCS: 99396; 99459

== ENCOUNTER 2025-03-26 11:17 | Day surgery (SDC) | payer OTHER, SELFPAY ==
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
--- OUTSIDE RECORDS SUMMARY | 2025-02-01 07:59 | XMS_ITS ---
Author Organization [facility] Address [address] [place] [phone] Care Team Providers Care Fur Vault Attendant Name Role Phone Ender Delisa RIGGINS Primary Care Provider Calderon Alvarado [phone] Encounters Encounter Location Date Provider Diagnosis [facility] [address] [place] [phone] 09/01/2024 Calderon Blankenship Plan Of Treatment Next Appt Details Provider Name:Calderon Blankenship , 03/26/2025 12:40:00 PM, [address] [place] [address] , [place], [place], [phone], Progress Notes * CLARA MENDIETA ADOB:1964 (59 yo F)Acc No.[id number]:09/01/2024 Patient:?CLARA MENDIETA :1965???Age:59 Y???Sex:Female Address:[address] [place] [address] * true * Date:? Generated for Printi rosita/Hill/eTransmitting on:?02/01/2025 07:59 AM EDT
--- OUTSIDE RECORDS SUMMARY | 2025-02-01 07:59 | XMS_ITS | Data Portability ---
Author Organization [facility], [address] Address [address] [place] [address] Assessment No assessment recorded. Plan of Treatment Reminders Order Date Submit Date Provider Last Modified By Organization Details Last Modified Time Details Appointments None recorded. Lab rapid strep group A, throat 2022 023 [place] [address], [address] [place] [address], [address], 3 09:49:18 rapid flu (A+B) 2022 023 [place] [address] [facility], [address] [place] [address], [address], 3 09:49:17 streptococc us group A, culture, throat [address] [place] [facility], [address] [place] [address], [place], [address], 3 08:09:00 Referral None recorded. Procedures None recorded. Surgeries None recorded. Imaging None recorded. Medication Orders prednisone 20 mg tablet 2022 023 [facility][id number], [address] [facility], [place], [address], 3 09:49:21 benzonatate 100 mg capsule 2022 023 [facility] #[id number], [address] [place], [address], 3 09:49:21 Zithromax Z-Markos 250 mg tablet 2022 023 [facility] #[id number], [address] [facility], [place], [address], 3 09:49:21 Lidocaine Viscous 2 % mucosal solution 2022 023 [facility] #2339, [address] [facility], [place], [address], 3 09:49:22 Patient TargetsNo targets recorded. Patient Instructions Encounter Date Encounter Id Patient Instructions Last Modified By Organization Details Last Modified Time 02/02/2023 [id number] sore throat: car e instructions skealy2 Not available 02/02/2023 09:49:47 Reason for Referral None Reported. Results Created Date Observation Date Name Description Value Unit Range Abnormal Flag Note LastModifiedBy Organization Detail LastModifiedTime 02/03/2002/05/2023 BETA STREP GP A CULTU RE beta strep gp A culture NEGATI VE Refer ence Range : Negat ross Not Available [facility] ([facility]) [address], [place], [address], 02/05/2023 08:09:00 02/03/20 23 02/02/2023 rapid flu (A+B) Unknown Analyte Normal = Negati ve Not Available delmi lara [address], [address], 02/02/2023 09:47:05 02/03/20 23 02/02/2023 rapid flu (A+B) Unknown Analyte negati ve Not Available 2099delmi lara [address] [place], [address], 02/02/2023 09:47:05 02/03/20 23 02/02/2023 rapid flu (A+B) Unknown Analyte Normal = Negati ve Not Available delmi lara [address], [address], 02/02/2023 09:47:05 02/03/20 23 02/02/2023 rapid flu (A+B) Unknown Analyte negati ve Not Available [address] [place] [address], [address], 02/02/2023 09:47:05 02/03/20 23 02/02/2023 rapid strep group A, throa t Unknown Analyte Normal = Negati ve Not Available [address] [place] [address], [address], 02/02/2023 09:47:03 02/03/2002/02/2023 rapid strep group A, throa t Unknown Analyte negati ve Not Available [address] [place] [address], [address], 02/02/2023 09:47:03 Result Notes None recorded. Problems Name Problem SNOMED Code Status Onset Date Resolution Date Notes Provider Name and Address Organization Details Recorded Time Asthma 363097603 Active 023 IRIS COUVERTIER null, PA - [...] Name and Address Organization Details Recorded Time 246412 Product containin g penicilli n (product) medicatio n Not available Not available Not available 02/02/2023 23472 8001 SNOMED IRIS COUVERTIE R null, [place] - [facility] 08:56:39 397910 acetamino phen / oxycodone medicatio n vomiting Not available Not available 02/02/2023 73140 3 RxNorm JUAN davis [facility] - [facility] [...] Updated DateTime 3 160.02 cm 24.8 kg/m2 04176.9 3 g 98.4 [degF] 20 /min 60 /min 100 % 100 % 116 mm[Hg] 72 mm[Hg] JUAN Muhammad PA - [facility] 3 09:01:23 Social History Question Answer Notes LastModified by Organizat ion Details LastModified Time Tobacco Smoking Status Former Smoker JUAN CASTANEDASAMY MARAH davis - [facility] 02/02/2023 08:58:07 What Is [...] SNOMED-CT Code Diagnosis ICD10 Code Diagnosis Note [id number] [facility] [place] [address] 10/08/2019 12:48:02 10/08/2019 14:07:42 [id number] [address] [place] [address] 06/29/2021 14:39:06 06/29/2021 15:35:37 [id number] [address] [facility] [place] [address] 07/17/2019 18:37:15 07/17/2019 19:58:59 [id number] Gunner Lofton MD [address] [facility] [facility] [place] [address] 02/02/2023 08:08:48 02/02/2023 09:50:22 Acute pharyngitis 068584014 J02.9 Use over the counter medication s [...] mouth Exacerbati on of moderate persistent asthma 527579251 J45.41 Health Concerns Section Related Observation LastModified by Organization Detai ls LastModified Time None Recorded Concern Status LastModified by Organization Details LastModified Time None Recorded Advance Directives Directive None Recorded Payers Insurance Date Sequence Insurance Name Policy Number Policy Kim Covered Member ID Kim Member ID Guarantor Name 02/02/[address] [place] [address] [id number] Flaquita Briceño [id number] Flaquita Ryleyalberto Notes Date Note Type Note Provider Name and Address Organization Details Recorded Time 02/02/2023 text/html Sore throatRepor elvira bypatient.Location:t hroat Severity:moderate Quality:hurts to swallow Onset/Timin days Associated Symptoms:sore throat;coughing Gunner Lofton MD [address] [place], [place] [address], [address], [place] - [facility] 02/02/2023 10:04:50 OBGyn Episode No OBEpisode recorded.
--- NOTE | 2025-03-23 11:00 | P.CONAN_ITS ---
Documented by User: Shima Hurtado NP 03/23/25 11:02 HPI - Anesthesia Eval Consult details Narrative: 60yo F for Colonoscopy Hx Paroxysmal SVT ;ablated 2012 [facility] Active Problems Active Problems: All Active Problems Encounter for annual routine gynecological examination (Acute) Past Medical History Medical History History of deviated nasal septum History of irregular heartbeat GERD (gastroesophageal reflux disease) Asthma Family History Family History Father Throat cancer Mother HTN (hypertension) Dementia Family/Other Breast cancer Maternal Grandmother Heart valve replaced Surgical History Surgical History History of urologic surgery History of cardiac radiofrequency ablation (RFA) Hx of carpal tunnel repair Hx of eye surgery Hx of cholecystectomy History of back surgery Social History Social History Household Members Other:: daughter Housing: House Are you a primary personal care home administrator to a significant other at home: No Do you presently have visiting nurse or other home services: No Alcohol intake: current Alcohol intake frequency: holidays/special occasions only Patient Tobacco Use Status: Former Tobacco user Years Smoked: 6 Use of substances other than those prescribed or required for medical reasons: No Have you been hit, kicked, punched, or otherwise hurt by someone within the past year? If so, by whom?: No Are you DNR?: No Advance Directives: No Advance Directives Information Provided: Yes Patient : No Poor oral hygiene: No service: No Current occupational status: employed Current occupation: Director Sexual orientation: Straight/Heterosexual Gender identity: Female Meds Allergies Allergy/AdvReac Type Severity Reaction Status Date / Time Penicillins (PENICILLINS) Allergy Intermediate RASH Verified 03/26/25 11:36 amoxicillin Allergy Unknown Rash Verified 03/26/25 11:36 hydrocodone (Vicodin) Allergy Unknown Rash Verified 03/26/25 11:36 oxycodone (From PERCOCET) Allergy Unknown RASH Verified 03/26/25 11:36 peanut (PEANUT) Allergy Unknown TONGUE Verified 03/26/25 11:36 SWELLING. TINGLING. SOB penicillin V Allergy Unknown Rash Verified 03/26/25 11:36 tramadol Allergy Unknown Rash Verified 03/26/25 11:36 bee pollen (bee stings) Allergy Unknown Verified 03/26/25 11:36 honey Allergy Unknown Verified 03/26/25 11:36 Codeine Phosphate Allergy Unknown Rash Uncoded 03/26/25 11:36 peanuts Allergy Unknown Anaphylaxis Uncoded 03/26/25 11:36 Home Medications ?Medication ?Instructions ?Recorded ?Confirmed ?Last Taken ?Type albuterol sulfate 90 mcg/actuation 2 inh inhalation Q6 H PRN Wheezing 12/11/20 03/26/25 Unknown History breath activated powder inhaler budesonide-formoterol HFA 80 2 puff inhalation BID 03/26/25 Unknown History mcg-4.5 mcg/actuation aerosol inhaler (Symbicort) montelukast 10 mg tablet 10 mg PO DAILY 12/11/2002/27 Unknown History (Singulair) Assessment and Plan Assessment Anesthesia Assessment: Chart Reviewed Documented by User: Jt Lyons MD 03/29/25 08:01 [facility] Past Medical History Medical History History of deviated nasal septum History of irregular heartbeat GERD (gastroesophageal reflux disease) Asthma Cognitive capacity: good Functional capacity: independent ambulation Patient : No Family History Family History Father Throat cancer Mother HTN (hypertension) Dementia Family/Other Breast cancer Maternal Grandmother Heart valve replaced Family history of problems with anesthesia: No Surgical History Surgical History History of urologic surgery History of cardiac radiofrequency ablation (RFA) Hx of carpal tunnel repair Hx of eye surgery Hx of cholecystectomy History of back surgery History of Problems with Anesthesia: No Social History Social History Household Members Other:: daughter Housing: House Are you a primary personal care home administrator to a significant other at home: No Do you presently have visiting nurse or other home services: No Alcohol intake: current Alcohol intake frequency: holidays/special occasions only Patient Tobacco Use Status: Former Tobacco user Years Smoked: 6 Use of substances other than those prescribed or required for medical reasons: No Have you been hit, kicked, punched, or otherwise hurt by someone within the past year? If so, by whom?: No Are you DNR?: No Advance Directives: No Advance Directives Information Provided: Yes Patient : No Poor oral hygiene: No service: No Current occupational status: employed Current occupation: Director Sexual orientation: Straight/Heterosexual Gender identity: Female Meds Allergies Allergy/AdvReac Type Severity Reaction Status Date / Time Penicillins (PENICILLINS) Allergy Intermediate RASH Verified 03/26/25 11:36 amoxicillin Allergy Unknown Rash Verified 03/26/25 11:36 hydrocodone (Vicodin) Allergy Unknown Rash Verified 03/26/25 11:36 oxycodone (From PERCOCET) Allergy Unknown RASH Verified 03/26/25 11:36 peanut (PEANUT) Allergy Unknown TONGUE Verified 03/26/25 11:36 SWELLING. TINGLING. SOB penicillin V Allergy Unknown Rash Verified 03/26/25 11:36 tramadol Allergy Unknown Rash Verified 03/26/25 11:36 bee pollen (bee stings) Allergy Unknown Verified 03/26/25 11:36 honey Allergy Unknown Verified 03/26/25 11:36 Codeine Phosphate Allergy Unknown Rash Uncoded 03/26/25 11:36 peanuts Allergy Unknown Anaphylaxis Uncoded 03/26/25 11:36 Home Medications ?Medication ?Instructions ?Recorded ?Confirmed ?Last Taken ?Type albuterol sulfate 90 mcg/actuation 2 inh inhalation Q6 H PRN Wheezing 12/11/20 03/26/25 Unknown History breath activated powder inhaler budesonide-formoterol HFA 80 2 puff inhalation BID 03/26/25 Unknown History mcg-4.5 mcg/actuation aerosol inhaler (Symbicort) montelukast 10 mg tablet 10 mg PO DAILY 12/11/2002/27 Unknown History (Singulair) Exam Exam Date and Time: 03/26/2025 Height,Weight and Vital Signs: ht 63, wt 146lbs Airway Mallampati Class: I TM Dist: >3cm Neck ROM: Full Heart: rrr Lungs: cta Other: good Assessment and Plan Final Anesthetic Review Family History of Problems with Anesthesia: No History of Problems with Anesthesia: No NPO: Yes ASA Class: II Final Preanesthetic Review: No Changes in Pt Med Stat, Meds/Allgs Chart Reviewed, Consent Obtained/Reviewed and Anes Risks/Benef Reviewed Patient Risk: Low Procedure Risk: Low Anesthetic Plan Anesthetic Plan: MAC: Disposition: Standard PACU
[2025-03-26 11:40] VITALS: BP 120/58; PULSE 60; RESP 12; TEMP 36.6; O2SAT 95; BMI 25.9
[2025-03-26] MEDS: Lactated Ringers 1,000 ML 100 ML IVCONT (11:50)
--- NOTE | 2025-03-26 13:32 | HO.ANESPROP2 ---
[facility] Active Problems Active Problems: All Active Problems (Updated 12/29/24 @ 00:01 by Harrison Lenz) Encounter for annual routine gynecological examination (Acute) Past Medical History Medical History History of deviated nasal septum History of irregular heartbeat GERD (gastroesophageal reflux disease) Asthma Functional capacity: independent ambulation Family History Family History Father Throat cancer Mother HTN (hypertension) Dementia Family/Other Breast cancer Maternal Grandmother Heart valve replaced Family history of problems with anesthesia: No Surgical History Surgical History History of urologic surgery History of cardiac radiofrequency ablation (RFA) Hx of carpal tunnel repair Hx of eye surgery Hx of cholecystectomy History of back surgery History of Problems with Anesthesia: No Social History Social History Household Members Other:: daughter Housing: House Are you a primary career technical supervisor to a significant other at home: No Do you presently have visiting nurse or other home services: No Alcohol intake: current Alcohol intake frequency: holidays/special occasions only Patient Tobacco Use Status: Former Tobacco user Years Smoked: 6 service: No Current occupational status: employed Current occupation: Director Sexual orientation: Straight/Heterosexual Gender identity: Female Meds Allergies Allergy/AdvReac Type Severity Reaction Status Date / Time Penicillins (PENICILLINS) Allergy Intermediate RASH Verified 03/26/25 11:36 amoxicillin Allergy Unknown Rash Verified 03/26/25 11:36 hydrocodone (Vicodin) Allergy Unknown Rash Verified 03/26/25 11:36 oxycodone (From PERCOCET) Allergy Unknown RASH Verified 03/26/25 11:36 peanut (PEANUT) Allergy Unknown TONGUE Verified 03/26/25 11:36 SWELLING. TINGLING. SOB penicillin V Allergy Unknown Rash Verified 03/26/25 11:36 tramadol Allergy Unknown Rash Verified 03/26/25 11:36 bee pollen (bee stings) Allergy Unknown Verified 03/26/25 11:36 honey Allergy Unknown Verified 03/26/25 11:36 Codeine Phosphate Allergy Unknown Rash Uncoded 03/26/25 11:36 peanuts Allergy Unknown Anaphylaxis Uncoded 03/26/25 11:36 Active Medications: Current Medications Albuterol Sulfate (Albuterol Sulfate (0.083%) 2.5 Mg/3 Ml Vial.Neb) 2.5 mg INHALE ONCE PRN PRN Reason: Shortness of Breath/Wheezing Lactated Ringer's (Lr) 1,000 mls @ 100 mls/hr IVCONT .Q10H JAI Last Admin: 03/26/25 11:50 Dose: 100 mls/hr Sodium Biphosphate/Sodium Phosphate (Sodium Phosphate,Morgan-Dibasic 133 Ml Enema) 133 ml WV ONCE PRN PRN Reason: Poor Colonoscopy Prep Results Home Medications ?Medication ?Instructions ?Recorded ?Confirmed ?Last Taken ?Type albuterol sulfate 90 mcg/actuation 2 inh inhalation Q6H PRN Wheezing 12/11/20 03/26/25 Unknown History breath activated powder inhaler budesonide-formoterol HFA 80 2 puff inhalation BID 12/11/20 03/26/25 Unknown History mcg-4.5 mcg/actuation aerosol inhaler (Symbicort) montelukast 10 mg tablet 10 mg PO DAILY 12/11/20 03/26/25 Unknown History (Francesco) Exam Height,Weight and Vital Signs: Height 5 ft 3 in Weight 66.224 kg Last Vital Signs Temp 97.8 F 03/26/25 11:40 Pulse 60 03/26/25 11:40 Resp 12 03/26/25 11:40 BP 120/58 L 03/26/25 11:40 Pulse Ox 95 03/26/25 11:40 O2 Del Method Room Air 03/26/25 11:40 Airway Mallampati Class: II TM Dist: >3cm Neck ROM: Full Heart: rrr Lungs: cta Other: oriented Assessment and Plan Final Anesthetic Review Family History of Problems with Anesthesia: No History of Problems with Anesthesia: No
[2025-03-26 14:26] VITALS: BP 103/57; PULSE 60; RESP 16; TEMP 36.6; O2SAT 100
--- NOTE | 2025-03-26 14:26 | PM.OP ---
Brief Operative Note Date of Service: 03/26/25 Pre-op diagnosis: Screening Post-op diagnosis: other (Diverticulosis) Procedure: Colonoscopy to the cecum and TI Surgeon: Calderon Blankenship MD Anesthesia: MAC Was an Stripper Machine Operator used for this Procedure?: No Estimated blood loss (mL): 0 Pathology: none sent Condition: stable Disposition: PACU
[2025-03-26 14:37] VITALS: BP 110/48; PULSE 64; RESP 16; TEMP 36.6; O2SAT 99
--- NOTE | 2025-03-27 01:45 | OP_ITS ---
DATE OF SERVICE: 03/26/2025 SURGEON: Calderon Blankenship MD INDICATIONS: The patient presents for followup of personal history of tubular adenoma of the colon, colorectal cancer screening. Full consent was obtained from her for this, including risks of bleeding and perforation. PREOPERATIVE DIAGNOSIS: POSTOPERATIVE DIAGNOSIS: PROCEDURE PERFORMED: Colonoscopy to cecum and terminal ileum. ESTIMATED BLOOD LOSS: COMPLICATIONS: ANESTHESIA: Medication used, monitored anesthesia care. ASSISTANTS: SPECIMENS: PREOPERATIVE DIAGNOSES: Colorectal cancer screening and personal history of tubular adenoma of the colon. POSTOPERATIVE DIAGNOSES: Colorectal cancer screening and personal history of tubular adenoma of the colon, diverticulosis and internal hemorrhoids. DESCRIPTION OF PROCEDURE: The patient was placed in left lateral decubitus position. The digital rectal exam revealed no abnormalities. The Olympus video pediatric colonoscope was entered into the rectum, advanced easily to the cecum. Once in the cecum I did identify normal-appearing cecal pouch with appendiceal orifice and a normal-appearing ileocecal valve. The terminal ileum was cannulated and appeared normal. The scope was withdrawn back into the cecum. The entire cecum and ileocecal valve appeared normal. Scope was then slowly withdrawn assessing all mucosal surfaces carefully. Preparation was excellent. I did not visualize any sign of polyps, colitis, nor angiodysplasia. There was a mild amount of sigmoid diverticulosis. In the rectum, scope was retroflexed visualizing internal hemorrhoids, but no other pathology. The rectal mucosa appeared normal. Scope was straightened and withdrawn from the patient. She tolerated the procedure well and was returned to recovery area in stable condition. IMPRESSION: 1. Diverticulosis. 2. Internal hemorrhoids. PLAN: Given the previous history of a tubular adenoma removed in 2017, but today's negative exam, I would recommend a followup colonoscopy in approximately 7 years for further followup. She will otherwise see me on a p.r.n. basis. MD LUIS E De Paz/ED / [phone] GINO
== END 2025-03-26 14:56 | disposition home or self-care (01) ==
PROVIDERS: PCP Nurse Practitioner Family; Visit Provider Internal Medicine
PROC: 0DJD8ZZ Inspection of Lower Intestinal Tract, Via Natural or Artificial Opening Endoscopic (ICD-10-PCS; CPT 45378; principal; 2025-03-26 12:40)
DX: Z12.11 Encounter for screening for malignant neoplasm of colon (principal); K57.30 Diverticulosis of large intestine without perforation or abscess without bleeding; K64.8 Other hemorrhoids; Z86.0101 Personal history of adenomatous and serrated colon polyps; J45.909 Unspecified asthma, uncomplicated; K21.9 Gastro-esophageal reflux disease without esophagitis; Z79.899 Other long term (current) drug therapy
CPT/HCPCS: 45378; J2003; J2704; J3010

== ENCOUNTER 2025-05-21 14:56 | Emergency (ER) | payer OTHER, SELFPAY ==
--- OUTSIDE RECORDS SUMMARY | 2025-03-26 08:40 | XMS_ITS ---
Author Organization [facility] Address [address] [place] [address] Care Team Providers Care Hotel Or Motel Cleaning Supervisor Name Role Phone Ender Delisa RIGGINS Primary Care Provider Calderon Alvarado [phone] REASON FOR VISIT screening,hx polyps Encounters Encounter Location Date Provider Diagnosis [facility] [address] [place], [place] [phone] 03/26/2025 Calderon Blankenship Colon cancer scree nico [...] * CLARA MENDIETA ADOB:1964 (60 yo F)Acc No.[id number]:03/26/2025 COLON WITH MAC Patient: CLARA EL Provider: Sabina Blankenship MD :1965 A ge:60 Y S ex:Female Date:03/26/2025 Address:[address] [place], [place] [id number] Pcp:Delisa Handley CNP Subjective: * Chief Complaints: [...] 0 03/26/2025 Generated for Aleksandr becker/Hill/Sreedharitting on: 0 05/21/2025 06:30 PM EDT
--- NOTE | ~2025-05-21 | XR_ITS ---
EXAMINATION: XR CHEST CLINICAL INFORMATION: SOB COMPARISON: 12/13/2022 TECHNIQUE: 2 views of the chest were obtained. FINDINGS: The cardiac, hilar, and mediastinal contours are normal. The lungs are clear bilaterally. There is no pneumothorax or pleural effusion. There is no focal osseous or soft tissue abnormality. There are cholecystectomy clips present. XR/XR chest 2V IMPRESSION: No active pulmonary disease. Electronically signed by: Musa Guaman MD 05/21/2025 03:23 PM EDT
--- NOTE | ~2025-05-21 | CT_ITS ---
CLINICAL HISTORY: pain medial thigh tender swelling, infection?? Contrast-enhanced CT of the left femur Indication: Evaluate for abscess Comparison: None. Findings: The left femur is intact without fracture or dislocation. Minimal degenerative change of the left hip and left knee. There is no hematoma or abscess. The visualized portions of the bladder, uterus and colon are unremarkable. Impression: No evidence of abscess or alternate acute process. This document has been electronically signed by: Jong Martinez MD on 05/21/2025 19:54:45
--- NOTE | ~2025-05-21 | US_ITS ---
EXAMINATION: US TRIPLEX LOWER EXTREMITY, BILATERAL CLINICAL INFORMATION: Lower leg pain, dyspnea, concern for DVT. COMPARISON: None available. TECHNIQUE: Color-flow triplex imaging with spectral analysis and compression Doppler were performed on the bilateral lower extremities. FINDINGS: Respiratory variation, normal compression and augmented flow are noted throughout the bilateral lower extremities. The visualized common femoral vein, superficial femoral vein, profunda femoral vein, popliteal vein and midcalf peroneal and posterior tibial venous segments show no evidence of deep venous thrombosis bilaterally. There is no Guzmán's cyst. US/US venous duplex LE BI IMPRESSION: No evidence of deep venous thrombosis involving the bilateral lower extremities. Electronically signed by: Musa Guaman MD 05/21/2025 04:37 PM EDT
[2025-05-21 14:58] VITALS: BP 139/65; PULSE 52; RESP 19; TEMP 36.5; O2SAT 98; BMI 26.6
--- NOTE | 2025-05-21 15:01 | ED_ITS ---
HPI - General Adult General Chief complaint: Extremity Problem Stated complaint: SOB, PAIN IN LOWER LEG Time Seen by Provider: 05/21/25 18:07 Source: patient Limitations: no limitations History of Present Illness ED Provider: Aura Perry PA-C HPI narrative: 60-year-old female with a history of asthma presents given need to rule out DVT. Patient states she just traveled back from [place], she developed left inner thigh pain. Pain worse with palpation, and ambulation. Patient states she feels a tender swelling within the medial thigh. Denies swelling of the left lower extremity, pleuritic chest pain, hemoptysis. Patient states she has a the sense that she can not take a full breath. She denies wheezing. Denies cough or cold symptoms no fever. Patient was sent by her primary care provider to rule out DVT. Related Data Home Medications ?Medication ?Instructions ?Recorded ?Confirmed albuterol sulfate 90 mcg/actuation 2 inh inhalation Q6 H PRN Wheezing 12/11/20 03/26/25 breath activated powder inhaler budesonide-formoterol HFA 80 2 puff inhalation BID 03/26/25 mcg-4.5 mcg/actuation aerosol inhaler (Symbicort) montelukast 10 mg tablet 10 mg PO DAILY 12/11/2002/27 (Singulair) Previous Rx's ?Medication ?Instructions ?Recorded epinephrine 0.3 mg/0.3 mL 0.3 mg (0.3 mL) IM ONCE PRN 12/10/21 injection, auto-injector (EpiPen anaphylaxis #1 ea 2-Markos) albuterol sulfate 0.63 mg/3 mL 0.63 mg (3 mL) inhalati on QID PRN 12/13/22 solution for nebulization bronchospasm #75 mL ketorolac 10 mg tablet 10 mg PO Q6H PRN pain #20 ta bs 05/21/25 methocarbamol 750 mg tablet 750 mg PO Q8H PRN pain, mo derate 05/21/25 #12 tabs prednisone 20 mg tablet 40 mg (2 x 20 mg) PO DAILY # 8 tabs 05/21/25 Allergies Allergy/AdvReac Type Severity Reaction Status Date / Time Penicillins (PENICILLINS) Allergy Intermediate RASH Verified 05/21/25 15:01 amoxicillin Allergy Unknown Rash Verified 05/21/25 15:01 hydrocodone (Vicodin) Allergy Unknown Rash Verified 05/21/25 15:01 oxycodone (From PERCOCET) Allergy Unknown RASH Verified 05/21/25 15:01 peanut (PEANUT) Allergy Unknown TONGUE Verified 05/21/25 15:01 SWELLING. TINGLING. SOB penicillin V Allergy Unknown Rash Verified 05/21/25 15:01 tramadol Allergy Unknown Rash Verified 05/21/25 15:01 bee pollen (bee stings) Allergy Unknown Verified 05/21/25 15:01 honey Allergy Unknown Verified 05/21/25 15:01 Codeine Phosphate Allergy Unknown Rash Uncoded 05/21/25 15:01 peanuts Allergy Unknown Anaphylaxis Uncoded 03/26/25 11:36 Review of Systems 2 Review of Systems: Yes all other systems are reviewed and are negative Constitutional: Constitutional: Denies fatigue and Denies fever(s) Cardiovascular: Cardiovascular: Denies chest pain and Reports dyspnea Respiratory: Respiratory: Denies cough, Reports dyspnea and Denies wheezing Musculoskeletal: Musculoskeletal: Denies arthralgias and Denies joint swelling Endocrine: Endocrine: Denies fatigue Allergic/Immunologic: Allergic/Immunologic: Denies wheezing PMFSH Past Medical History Attestation statement: The following information was validated with the patient. Medical History History of deviated nasal septum History of irregular heartbeat GERD (gastroesophageal reflux disease) Asthma Surgical History History of urologic surgery History of cardiac radiofrequency ablation (RFA) Hx of carpal tunnel repair Hx of eye surgery Hx of cholecystectomy History of back surgery Family History Family History Father Throat cancer Mother HTN (hypertension) Dementia Family/Other Breast cancer Maternal Grandmother Heart valve replaced Social History Social History Household Members Other:: daughter Housing: House Are you a primary career professional to a significant other at home: No Do you presently have visiting nurse or other home services: No Alcohol intake: current Alcohol intake frequency: holidays/special occasions only Patient Tobacco Use Status: Former Tobacco user Years Smoked: 6 Smoked in Last 30 Days: No Use of substances other than those prescribed or required for medical reasons: No Advance Directives: No Advance Directives Information Provided: No Do you have a plan to hurt others: No Plan Patient : No service: No Current occupational status: employed Current occupation: Director Sexual orientation: Straight/Heterosexual Gender identity: Female Physical Exam ED Vital Signs: Vital Signs - 24 hr 05/21/25 14:58 05/21/25 18:07 05/21/25 18:27 Temperature 97.7 F 97.6 F Pulse Rate 52 46 L 51 Respiratory Rate 19 15 16 Blood Pressure 139/65 134/52 L Pulse Oximetry 98 99 Oxygen Delivery Method Room Air Room Air BMI result Body Mass Index 26.6 Const Other: Alert well-appearing Orientation/consciousness: patient oriented x3 Resp Other: No wheezing lungs clear Effort & Inspection: normal respiratory effort Cardio Other: Normal peripheral perfusion no pedal edema Skin Other: Warm dry no rash Neuro General: patient oriented x3, gait normal, no focal motor deficits and CN's II- XI intact bilaterally Extrem Other: On inspection the medial left thigh is unremarkable, there was no deformity no erythema no warmth no objective swelling visually no ecchymosis. With palpation she has a very focal region of tenderness that has slightly prominent Psych Other: Cooperative Course Course Course Narrative: Rapid medical examination performed in triage by Dunia Fishman PA-C. Patient is a 60 year old assigned female at presenting to the emergency department with shortness of breath and pain in her lower legs. Detailed physical exam and review of systems are deferred to the primary school teacher. EKG, labs, imaging, swabs ordered. Patient placed back in the waiting room pending room availability and results. Reevaluation(s) Reevaluation #1: Patient's respiratory symptoms much improved after a short updraft Medications Administered Discontinued Medications Generic Name Dose Route Start Last Admin Trade Name Freq PRN Reason Stop Dose Admin Albuterol Sulfate 5 mg 05/21/25 18:13 05/21/25 18:27 Albuterol Sulfate (0.083%) 2.5 Mg/3 Ml Vial.Neb INHALE 05/21/25 18:14 5 mg ONCE ONE Administration Iohexol 100 ml 05/21/25 19:19 05/21/25 19:20 Iohexol 350 Mg/Ml 100 Ml Infus..Btl IV 05/21/25 19:20 85 ml ONCE ONE Administration Ketorolac Tromethamine 15 mg 05/21/25 18:53 05/21/25 19:00 Ketorolac Tromethamine 15 Mg/Ml Vial IVPUSH 05/21/25 18:54 15 mg ONCE ONE Administration Prednisone 40 mg 05/21/25 18:13 05/21/25 19:00 Prednisone 20 Mg Tablet PO 05/21/25 18:14 40 mg ONCE ONE Administration Medical Decision Making Medical Decision Making MDM Narrative: 60-year-old female with a history of asthma presents given need to rule out DVT. Patient states she just traveled back from [place], she developed left inner thigh pain. Pain worse with palpation, and ambulation. Patient states she feels a tender swelling within the medial thigh. Denies swelling of the left lower extremity, pleuritic chest pain, hemoptysis. Patient states she has a the sense that she can not take a full breath. She denies wheezing. Denies cough or cold symptoms no fever. Patient was sent by her primary care provider to rule out DVT Problem: Asthma recent travel History: Per patient I have considered the following differential diagnoses: DVT, PE, asthma exacerbation, viral syndrome, seasonal allergies, pneumonia, ACS Plan: Patient is sent here to rule out DVT, Doppler studies ordered from triage they are negative. In regard to the focal tenderness of the inner thigh. It does not appear to be anything infectious, there was no trauma, I do objectively feel a tender swelling. We will obtain a CT scan. I feel x-rays are of no value. Giving Toradol and Tylenol for her pain. In regard to her respiratory complaint, with a environmental changes, her asthma baby mildly triggered, she has a subjective sense that she can not take a deep breath. We will give an updraft and steroid. Thought about PE, however she does not have DVTs, she is not hypoxic, she is not tachycardic, I am deferring a dimer , it is not clinically warranted at this time.. ACS was considered, the patient does deny chest pain, her only risk factors for age, in addition to screening labs troponin and EKG chest x-ray obtained. I have independently reviewed the following tests: Labs: No leukocytosis, not anemic, no electrolyte abnormality, troponin negative at less than 2.7, viral panel negative EKG: Sinus bradycardia, rate of 50, no ischemic changes no ectopy QTC 399 Chest x-ray:INDINGS: The cardiac, hilar, and mediastinal contours are normal. The lungs are clear bilaterally. There is no pneumothorax or pleural effusion. There is no focal osseous or soft tissue abnormality. There are cholecystectomy clips present. XR/XR chest 2V IMPRESSION: No active pulmonary disease. Ultrasound bilateral lower extremities: US/US venous duplex LE BI IMPRESSION: No evidence of deep venous thrombosis involving the bilateral lower extremities. CT left femur:Findings: The left femur is intact without fracture or dislocation. Minimal degenerative change of the left hip and left knee. There is no hematoma or abscess. The visualized portions of the bladder, uterus and colon are unremarkable. Impression: No evidence of abscess or alternate acute process. Differential Diagnosis Differential Diagnoses: The differential diagnosis associated with the presentation includes See [facility] Admission/Observation Consideration of admission/observation: Escalation of care including admission/observation considered Not applicable Lab Data [facility] Lab Attestation statement: I reviewed the patient's lab results. 05/21/25 15:44 05/21/25 15:44 Labs: Lab Results 05/21/25 05/21/25 Range/Units 15:44 15:51 WBC 4.7 L (4.8-10.8) X10*3/uL RBC 4.14 L (4.20-5.50) X10*6/uL Hgb 13.1 (12.0-16.0) g/dl Hct 36.5 L (37.0-47.0) % MCV 88.2 (80.0-98.0) fL MCH 31.6 (27.0-33.0) pg MCHC 35.9 H (31.0-35.0) g/dl RDW 12.5 (11.0-16.0) % Plt Count 162 (160-400) X10*3/uL MPV 10.2 (9.4-12.3) fL Immature Gran % (Auto) 0.2 (0.0-0.4) % Neut % (Auto) 63.1 (45-73) % Lymph % (Auto) 29.3 (20-40) % Burnet % (Auto) 5.1 (2-11) % Eos % (Auto) 1.9 (0-4) % Baso % (Auto) 0.4 (0-2) % Lymph # (Auto) 1.4 (1.2-4.9) X10*3/uL Burnet # (Auto) 0.2 (0.1-1.2) X10*3/uL Eos # (Auto) 0.1 (0.0-0.4) X10*3/uL Baso # (Auto) 0.0 (0.0-0.2) X10*3/uL Abs Immat Gran (auto) 0.01 (0.00-0.03) X10*3/uL Absolute Neuts (auto) 3.0 (2.0-8.3) x10*3/uL Absolute Nucleated RBC 0.000 (0.0-0.012) X10*3/uL Nucleated RBC % (auto) 0.0 (0.0-0.2) /100WBC PT 11.2 (10.9-12.4) SEC INR 1.0 (0.9-1.1) VBG pH 7.45 H (7.32-7.43) VBG pCO2 38 mmHg VBG pO2 38 mmHg VBG HCO3 27 H (22-26) mmol/L VBG O2 Saturation 60.0 % VBG Base Excess 3.4 mmol/L Sodium 140 (135-145) mmol/L Potassium 4.1 (3.3-5.1) mmol/L Chloride 105 (96-108) mmol/L Carbon Dioxide 26 (22-29) mmol/L Anion Gap 13 (12-20) BUN 21 H (9-16) mg/dL Creatinine 0.85 (0.5-1.4) mg/dL Estim Creat Clear Calc 65.1 Estimated GFR > 60 Random Glucose 85 (60-115) mg/dL Calcium 9.6 (8.4-10.2) mg/dL Magnesium 2.2 (1.6-2.6) mg/dL Total Bilirubin 0.8 (0.0-1.0) mg/dL AST 31 (5-31) U/L ALT 34 H (0-31) U/L Alkaline Phosphatase 76 (39-117) U/L Troponin I High Sens < 2.7 (<3.5-17.0) ng/L Total Protein 6.9 (6.5-8.0) g/dL Albumin 4.6 (3.5-5.0) g/dL COVID-19 (OPAL) Negative (Negative) COVID-19 Clin Com See Note Influenza Type A (WILY) Negative (Negative) Influenza Type B (WILY) Negative (Negative) Influenza A & B Note See Note Radiology Impression Discussion of test interpretation with radiology: I have reviewed the radiologist's reading. Discharge Plan Discharge Clinical Impression: Acute pain of left thigh, Asthma exacerbation Patient Disposition: Home, Self-Care Instructions: Asthma (ED), Leg Pain (ED) Additional Instructions: All of your screening labs including a cardiac enzyme and viral panel were negative. There were no concerning changes on your EKG in the chest x-ray was clear. You had ultrasounds of both lower extremities, they were negative for a deep vein thrombosis. The CT scan of the thigh was overall unremarkable, you were noted to have arthritic changes within the hip and the knee. You could be having referred pain. See home care instructions. In regard to your underlying shortness of breath, you are being treated for a mild asthma exacerbation. Use your home inhalers as needed, take the steroid as directed. Use the methocarbamol as needed for your thigh pain, this is a muscle relaxant. It may cause drowsiness, do not drive or operate machinery while taking the medication. I am also sending you with Toradol, this is an anti-inflammatory, take it with food. Follow up with your primary care provider as needed. Prescriptions: New prednisone 20 mg tablet 40 mg PO DAILY Qty: 8 0RF methocarbamol 750 mg tablet 750 mg PO Q8H PRN (Reason: pain, moderate) Qty: 12 0RF ketorolac 10 mg tablet 10 mg PO Q6H PRN (Reason: pain) Qty: 20 0RF Rx Instructions: maximum total duration of 5 days from all oral, intranasal, or parenteral formulations. Patient received an IV dose of Toradol here in the emergency room No Action albuterol sulfate 0.63 mg/3 mL solution for nebulization 0.63 mg inhalation QID PRN (Reason: bronchospasm) Qty: 75 0RF epinephrine [EpiPen 2-Markos] 0.3 mg/0.3 mL auto-injector 0.3 mg IM ONCE PRN (Reason: anaphylaxis) Qty: 1 0RF budesonide-formoterol [Symbicort] 80-4.5 mcg/actuation HFA aerosol inhaler 2 puff inhalation BID albuterol sulfate 90 mcg/actuation aerosol powdr breath activated 2 inh inhalation Q6H PRN (Reason: Wheezing) montelukast [Singulair] 10 mg tablet 10 mg PO DAILY Print Language: Indian
--- NOTE | 2025-05-21 15:02 | ECG_ITS ---
Test Reason : SOB Blood Pressure : */* mmHG Vent. Rate : 50 BPM Atrial Rate : 50 BPM P-R Int : 164 ms QRS Dur : 80 ms QT Int : 438 ms P-R-T Axes : 13 27 47 degrees QTcB Int : 399 ms Sinus bradycardia Otherwise normal ECG When compared with ECG of 13-Dec-2022 18:23, No significant change was found Referred By: Dunia Fishman Electronically Signed By: LIANNA MAYS
[2025-05-21 15:50] LABS: MANUAL DIFF FLAG NO
[2025-05-21 15:53] LABS: Hematocrit 36.5 % (37.0-47.0); Hemoglobin 13.1 g/dl (12.0-16.0); Imm Gran Abs Auto 0.01 X10*3/uL (0.00-0.03); Imm Gran Pct Auto 0.2 % (0.0-0.4); Lymphocytes Absolute Auto 1.4 X10*3/uL (1.2-4.9); Mean Corpuscular HGB Conc 35.9 g/dl (31.0-35.0); Mean Corpuscular Hemoglobin 31.6 pg (27.0-33.0); Mean Corpuscular Volume 88.2 fL (80.0-98.0); NRBC Abs Auto 0.000 X10*3/uL (0.0-0.012); NRBC Pct Auto 0.0 /100WBC (0.0-0.2); Platelet Count 162 X10*3/uL (160-400); Red Blood Count 4.14 X10*6/uL (4.20-5.50); White Blood Count 4.7 X10*3/uL (4.8-10.8)
[2025-05-21 15:59] LABS: VBG HCO3 27 mmol/L (22-26); VBG O2 % Saturation 60.0 %
[2025-05-21 15:59] LABS: Venous Blood Gas Refer to POC result
[2025-05-21 16:03] LABS: INTERNATIONAL NORM RATIO 1.0 (0.9-1.1); Prothrombin Time 11.2 SEC (10.9-12.4)
[2025-05-21 16:06] LABS: Alanine Aminotransferase 34 U/L (0-31); Albumin Level 4.6 g/dL (3.5-5.0); Alkaline Phosphatase 76 U/L (39-117); Anion Gap 13 (12-20); Aspartate Amino Transferase 31 U/L (5-31); Blood Urea Nitrogen 21 mg/dL (9-16); Calcium 9.6 mg/dL (8.4-10.2); Carbon Dioxide 26 mmol/L (22-29); Chloride 105 mmol/L (96-108); Creatinine Clr Calc Pharmacy 65.1; Estimated Glomerular Filt Rate > 60; Magnesium 2.2 mg/dL (1.6-2.6); Potassium 4.1 mmol/L (3.3-5.1); Sodium 140 mmol/L (135-145); Total Protein 6.9 g/dL (6.5-8.0)
[2025-05-21 16:09] LABS: COVID-19 Test Negative (Negative); IDNOW Serial# 55D5AD1C; IDNOW Serial# 58CA691E; Influenza B2 Negative (Negative)
[2025-05-21 16:14] LABS: Troponin-I High Sensitivity < 2.7 ng/L (<3.5-17.0)
[2025-05-21 18:07] VITALS: BP 134/52; PULSE 46; RESP 15; TEMP 36.4; O2SAT 99
--- NOTE | 2025-05-21 18:15 | PC.NURSE ---
Patient presents to ED c/o L inner thigh pain and SOB starting on . Patient has taken recent flights and was seen by her PCP. PCP wants to rule out DVT. Patient denies pain at this time but states it comes and goes. Denies SOB at this time but comes ad goes. VSS and up to date. +CMS +ROM Provider in to see patient Plan of care on going
[2025-05-21 18:27] VITALS: PULSE 51; RESP 16; O2SAT 100
[2025-05-21] MEDS: Albuterol Sulfate (0.083%) 2.5 MG/3 ML VIAL.NEB 5 MG INHALE (18:27)
--- OUTSIDE RECORDS SUMMARY | 2025-05-21 18:30 | XMS_ITS | Clinical Summary ---
Author Organization [facility] Address [address] [place] [id number] Phone Care Team Providers Care Vacuum Technician Name Role Phone Franklin Alvarenga MD Primary Care Provide r Social History Tobacco Use Types Packs/Day Years Used Date Smoking Tobacco: Never Assessed Education Answer Date Recorded Are you interested in more education? Not on aust[place] e 2023 Are you concerned about learning? Not on file 2023 No 2023 No 2023 Digital Access Answer Date Recorded No 02/20/2023 No 02/20/2023 No 02/20/2023 Reliable internet access at home? Not on file 02/20/2023 Device with a working camera? Not on file Comments Unknown Sex and Gender Information Value Date Recorded Sex Assigned at Not on file Legal Sex Female 3:52 PM EDT Gender Identity Not on file Sexual Orientation Not on file Plan of Treatment Health Maintenance Due Date Last Done Comments Adult Td,Tdap Booster 1965 LIPID PANEL 1965 DEPRESSION SCREENING 1977 SMOKING Hx and SMOKELESS TOB ACCO SCREENING 1978 HEPATITIS C SCREENING 1983 HIV ONE-TIME SCREENING (18-6 5 YEARS) 1983 PAP SMEAR 1986 MAMMOGRAM 2005 COLOGUARD 2010 COLONOSCOPY 2010 COLORECTAL CANCER SCREENING 2010 FIT TEST 2010 FOBT 2010 SIGMOIDOSCOPY 2010 VIRTUAL COLONOSCOPY 2010 PNEUMOCOCCAL VACCINES (50+ y ears) (1 of 1 - PCV) 2015 ZOSTER VACCINES (1 of 2) 2015 COVID-19 VACCINE ( - 2023-2 5 season) 2024 INFLUENZA VACCINE (#1) 2025 RSV VACCINE (1 - 1-dose 75+ series) 01/23/2040 HEPATITIS A VACCINES Aged Out No long er eligible based on patient's age to complete this topic HIB VACCINES Aged Out No longer eligi ble based on patient's age to complete this topic MENINGOCOCCAL VACCINES (ACWY) Aged Out No longer eligible based on patient's age to complete this topic MENINGOCOCCAL VACCINES (B) Aged Out N o longer eligible based on patient's age to complete this topic Medical Devices Not on file Insurance O [place] [address] [place] [address] [place] [address] [place] [address] [place] [address] [place] [address] [place] [address] [place] [address] [place] [address] [place] [address] [place] [place] [address] [place] [address] HMO POS [facility] Care Teams Vacuum Technician Relationship Specialty Start Date End Date Franklin Alvarenga MD PCP - General Internal Medicine 03/09/18 Additional Source Comments The information contained in this document represents components of the legal health record. It is not the complete legal health record.[facility]
--- OUTSIDE RECORDS SUMMARY | 2025-05-21 18:30 | XMS_ITS | Patient Health Record ---
Author Organization [facility] Address [address] [place] [address] Care Team Providers Care Decorating Inspector Name Role Phone Ender Delisa RIGGINS Primary Care Provider Calderon Alvarado [phone] Allergies Allergen (clinical drug ingredient) Drug/Non Drug [...] Status Risk Notes Problem Colon cancer screening (440088482) Colon cancer screening (Z12.11) Active confirmed Problem 9900553 Diverticulitis o f large intestine without perforation or abscess without bleeding (K57.32) Active confirmed Problem 702779510 Encounter for screening for malignant neoplasm of colon (Z12.11) Active confirmed Problem Constipation (72528645) Constipation (K59.00) Active confirmed Problem Personal history of colonic polyps (Z86.010) Active confirmed Problem 12407997 Iron deficiency anemia, unspecified iron deficiency anemia type (D50.9) Active confirmed Vital Signs Blood pressure diastolic 11 mm Hg 01/04/2025 Height 63.25 in 01/04/2025 Blood pressure systolic 111 mm Hg 01/04/2025 Weight 150 lbs 01/04/2025 BMI 26.36 kg/m2 01/04/2025 Procedures Procedure Date Ordered Date Performed Result Body Sit e COLONOSCOPY 01/04/2025 N/A Encounters Encounter Location Date Provider Diagnosis [facility] [place] Outpatient [address] [place] [id number] 03/26/2025 Calderon Blankenship Colon cancer screeni ng Z12.11 ; Personal history of adenomatous and serrated colon polyps Z86.0101 ; Diverticulosis of large intestine without perforation or abscess without bleeding K57.30 and Other hemorrhoids K64.8 [facility] [address] [place] [phone] 01/04/2025 Calderon Blankenship Personal history of colonic polyps Z86.010 ; Constipation K59.00 and Colon cancer screening Z12.11 [facility] [address] [place] [address] 09/01/2024 Calderon Blankenship Assessments Encounter Date Diagnosis (ICD Code) Assessment Notes Treatment Notes Treatment Clinical Notes Section Notes 03/26/2025 Colon cancer screening (ICD-10 - Z12.11) 03/26/2025 Personal history of adenomatous and serrated colon polyps (ICD-10 - Z86.0101) 01/04/2025 Constipation (ICD-10 - K59.00) Overall, Candi [...] to keep you advised of her progress. 03/26/2025 Diverticulosis of large intestine without perforation or abscess without bleeding (ICD-10 - K57.30) 01/04/2025 Colon cancer screening (ICD-10 - Z12.11) [...] to keep you advised of her progress. 03/26/2025 Other hemorrhoids (ICD-10 - K64.8) Plan Of Treatment Pending Test Test Name Order Date COLONOSCOPY 01/04/2025 IRON + IBC (FE) 11/19/2017 FERRITIN 11/19/2017 FOLATE 09/03/2017 CBC w DIFF 11/19/2017 CELIAC PANEL #10 09/03/2017 Future Test Test Name Order Date COLONOSCOPY 03/17/2017 UPPER GI ENDOSCOPY 11/19/2017 Insurance Providers Payer Name Payer Address Payer Phone Subscriber Number Group Number Insured Name Patient Relationship to Insured Coverage Start Date Coverage End Date Diversified [place] [address] [place] [phone] [id number] CLARA MENDIETA Self - patient is the [...] omen removed, diverticulosis Iron deficiency anemia in 2016--Hemoccult cards were negative in August 2017, [...]
[2025-05-21] MEDS: iohexoL 350 MG/ML 100 ML INFUS..BTL IV (19:20)
[2025-05-21 20:19] VITALS: BP 114/55; PULSE 67; RESP 16; TEMP 36.3; O2SAT 96
[2025-05-21 20:56] VITALS: BP 114/55; PULSE 67; RESP 16; TEMP 36.3; O2SAT 96
== END 2025-05-21 21:02 | disposition home or self-care (01) ==
PROVIDERS: Physician Assistant Medical; Emergency Provider Emergency Medicine; PCP Nurse Practitioner Family
DX: R06.02 Shortness of breath (principal); M79.605 Pain in left leg; R00.1 Bradycardia, unspecified; R60.0 Localized edema; Z79.899 Other long term (current) drug therapy
CPT/HCPCS: 36415; 71046; 73701; 80053; 82803; 83735; 84484; 85025; 85610; 87502; 87635; 93005; 93970; 94640; 96365; 96375; 99284; 99285; J0131; J1885; Q9967

== ENCOUNTER → 2025-05-21 15:02 | Outpatient (BNV) | payer OTHER, SELFPAY | PROVIDERS: Emergency Provider Emergency Medicine; PCP Nurse Practitioner Family; Visit Provider Internal Medicine | DX: R00.1 Bradycardia, unspecified (principal) | CPT/HCPCS: 93010 ==

== ENCOUNTER → 2025-05-21 15:02 | Outpatient (BNV) | payer OTHER, SELFPAY | PROVIDERS: PCP Nurse Practitioner Family; Visit Provider Radiology Diagnostic Radiology | DX: M17.12 Unilateral primary osteoarthritis, left knee (principal); R06.02 Shortness of breath | CPT/HCPCS: 71046; 73701; 93970 ==

== ENCOUNTER 2025-08-06 08:26 | Outpatient (REF) | payer OTHER, SELFPAY ==
--- OUTSIDE RECORDS SUMMARY | 2025-03-26 07:40 | XMS_ITS ---
Author Organization [facility] Address [address] [place] [address] Care Team Providers Care Machine Cloth Measurer Name Role Phone Ender Delisa RIGGINS Primary Care Provider Calderon Alvarado [phone] REASON FOR VISIT screening,hx polyps Encounters Encounter Location Date Provider Diagnosis [facility] [address] [place], [place] [phone] 03/26/2025 Calderon Blankenship Colon cancer scree nico Z12.11 ; Personal history of adenomatous and serrated colon polyps Z86.0101 ; Diverticulosis of large intestine without perforation or abscess without bleeding K57.30 and Other hemorrhoids K64.8 Assessments Encounter Date Diagnosis (ICD Code) Assessment Notes Treatment Notes Treatment Clinical Notes Section Notes 03/26/2025 Colon cancer screening (ICD-10 - Z12.11) 03/26/2025 Personal history of adenomatous and serrated colon polyps (ICD-10 - Z86.0101) 03/26/2025 Diverticulosis of large intestine without perforation or abscess without bleeding (ICD-10 - K57.30) 03/26/2025 Other hemorrhoids (ICD-10 - K64.8) Plan Of Treatment No Information Progress Notes * CLARA MENDIETA ADOB:1964 (60 yo F)Acc No.[id number]:03/26/2025 COLON WITH MAC Patient: CLARA EL Provider: Sabina Blankenship MD :1965 A ge:60 Y S ex:Female Date:03/26/2025 Address:[address] [place], [place] [id number] Pcp:Delisa Handley CNP Subjective: * Chief Complaints: * 1 . Screening,hx polyps. * Medical History: Objective: * Vitals: Assessment: * Assessment: 1. C olon cancer screening - Z12.11 (Primary) 2 . P ersonal history of adenomatous and serrated colon polyps - Z86.0101 3 . D iverticulosis of large intestine without perforation or abscess without bleeding - K57.30 4 . O ther hemorrhoids - K64.8 Plan: * Treatment: * Procedure Codes: 4 5378 DIAGNOSTIC COLONOSCOPY * * The named appointment provid er may or may not be the originator of this progress note, and it is not deemed complete until electronically signed by the appointment provider. Sign off status: Pending * Provider: Sabina Blankenship MD Date: 0 03/26/2025 Generated for Aleksandr becker/Hill/Sreedharitting on: 1 10/06/2024 08:46 AM EST
--- OUTSIDE RECORDS SUMMARY | 2025-08-06 08:46 | XMS_ITS | Patient Health Record ---
Author Organization [facility] Address [address] [place] [address] Care Team Providers Care Pitch Flaker Name Role Phone Ender Delisa RIGGINS Primary Care Provider Calderon Alvarado [phone] Allergies Allergen (clinical drug ingredient) Drug/Non Drug [...] Status Risk Notes Problem Colon cancer screening (713722579) Colon cancer screening (Z12.11) Active confirmed Problem Diverticulitis of colon (990863477) Diverticulitis of large intestine without perforation or abscess without bleeding (K57.32) Active confirmed Problem Screening for malignant neoplasm of colon (630910870) Encounter for screening for malignant neoplasm of colon (Z12.11) Active confirmed Problem Constipation (79052618) Constipation (K59.00) Active confirmed Problem History of polyp of colon (situation) (744830882) Personal history of colonic polyps (Z86.010) Active confirmed Problem Iron deficiency anemia (97705792) Iron deficiency anemia, unspecified iron deficiency anemia type (D50.9) Active confirmed Vital Signs Blood pressure diastolic 11 mm Hg 01/04/2025 Height 63.25 in 01/04/2025 Blood pressure systolic 111 mm Hg 01/04/2025 Weight 150 lbs 01/04/2025 BMI 26.36 kg/m2 01/04/2025 Procedures Procedure Date Ordered Date Performed Result Body Sit e COLONOSCOPY 01/04/2025 N/A Encounters Encounter Location Date Provider Diagnosis [facility] [place] [address] [place] [id number] 03/26/2025 Calderon Blankenship Colon cancer screeni ng Z12.11 ; Personal history of adenomatous and serrated colon polyps Z86.0101 ; Diverticulosis of large intestine without perforation or abscess without bleeding K57.30 and Other hemorrhoids K64.8 [facility] [address] [place] [address] 01/04/2025 Calderon Blankenship Personal history of colonic polyps Z86.010 ; Constipation K59.00 and Colon cancer screening Z12.11 [facility] [address] [place] [address] 09/01/2024 Calderon Blankenship [facility] [address] [place] [address] 07/23/2025 Calderon Blankenship Assessments Encounter Date Diagnosis (ICD [...] Linda [address] [place] [phone] [id number] CLAAR MENDIETA Self - patient is the insured [...] Date(Month/Year) carpal tunnel release and trigger finger 2015 back surgery for disc disease nasal surgery cholecystectomy
--- OUTSIDE RECORDS SUMMARY | 2025-08-06 08:46 | XMS_ITS | Clinical Summary ---
Author Organization [facility] Address [address] [place] [address] [place] [address] Phone Care Team Providers Care Client Hr Manager Name Role Phone Franklin Alvarenga MD Primary [...] 2015 ZOSTER VACCINES (1 of 2) 2015 INFLUENZA VACCINE (#1) 2025 COVID-19 VACCINE ( - 2024-2 6 season) 2025 RSV VACCINE (1 - 1-dose 75+ [...] on file Insurance [place] [address] [place] [address] [place] [address] [place] [address] [place] [address] [place] [address] [place] [place] [address] [place] [address] [place] [address] [place] [address] [place] [address] [place] [address] [facility] Care Teams Client Hr Manager Relationship Specialty Start Date End Date Franklin Alvarenga MD PCP - General Internal Medicine 03/09/18 Additional Source Comments The information contained in this document represents components of the legal health record. It is not the complete legal health record.[facility]
--- OUTSIDE RECORDS SUMMARY | 2025-08-06 08:46 | XMS_ITS | Data Portability ---
Author Organization [facility], [facility] Address [address] [place] [address] Assessment No assessment recorded. Plan of Treatment Reminders Order Date Submit Date Provider Last Modified By Organization Details Last Modified Time Details Appointments None recorded. Lab rapid strep group A, throat 2022 023 [place] [address], [address] [place] [address], [phone], 3 09:49:18 rapid flu (A+B) 2022 023 [place] [address]_[facility], [address] [place] [address], [phone], 3 09:49:17 streptococc us group A, culture, throat 2022 023 [place] [facility], [address] [place] [address], [place], [address], 3 08:09:00 Referral None recorded. Procedures None recorded. Surgeries None recorded. Imaging None recorded. Medication Orders prednisone 20 mg tablet 2022 023 [facility][id number], [address] [place], [address], 3 09:49:21 benzonatate 100 mg capsule 2022 023 [facility], [address] [place], [address], 3 09:49:21 Zithromax Z-Markos 250 mg tablet 2022 023 [facility], [address] [place] [address], [place], [address], 3 09:49:21 Lidocaine Viscous 2 % mucosal solution 2022 023 [facility], [address] [facility], [place], [address], 3 09:49:22 Patient TargetsNo targets recorded. Patient Instructions Encounter Date Encounter Id Patient Instructions Last Modified By Organization Details Last Modified Time 02/02/2023 [id number] sore throat: car e instructions [email or web address] Not available 02/02/2023 09:49:47 Reason for Referral None Reported. Results Created Date Observation Date Name Description Value Unit Range Abnormal Flag Note LastModifiedBy Organization Detail LastModifiedTime 02/03/2002/05/2023 BETA STREP GP A CULTU RE beta strep gp A culture NEGATI VE Refer ence Range : Negat ross Not Available [facility] ([facility]) [address] [facility], [place], [address], 02/05/2023 08:09:00 02/03/2002/02/2023 rapid flu (A+B) Unknown Analyte Normal = Negati ve Not Available [facility] [address], [phone], 02/02/2023 09:47:05 02/03/20 23 02/02/2023 rapid flu (A+B) Unknown Analyte negati ve Not Available [facility] [address], [address], 02/02/2023 09:47:05 02/03/20 23 02/02/2023 rapid flu (A+B) Unknown Analyte Normal = Negati ve Not Available [facility] [address], [address], 02/02/2023 09:47:05 02/03/20 23 02/02/2023 rapid flu (A+B) Unknown Analyte negati ve Not Available [address] [place] [address], [phone], 02/02/2023 09:47:05 02/03/2002/02/2023 rapid strep group A, throa t Unknown Analyte Normal = Negati ve Not Available [address] [place] [address], [address], 02/02/2023 09:47:03 02/03/2002/02/2023 rapid strep group A, throa t Unknown Analyte negati ve Not Available [address] [place] [address], [phone], 02/02/2023 09:47:03 Result Notes None recorded. Problems Name Problem SNOMED Code Status Onset Date Resolution Date Notes Provider Name and Address Organization Details Recorded Time Asthma 277079977 Active 023 IRIS COUVERTSAMY davis, [place] - [facility] 02/02/2023 08:57:47 Problem [...] Name and Address Organization Details Recorded Time 104004 Product containin g penicilli n (product) medicatio n Not available Not available Not available 02/02/2023 79395 8001 SNOMED IRIS COUVERTRICAH davis, [place] - [facility] 08:56:39 467887 acetamino phen / oxycodone medicatio n vomiting Not available Not available 02/02/2023 61509 3 RxNorm JUAN [place], [place] - [facility] [...] Updated DateTime 3 160.02 cm 24.8 kg/m2 40755.9 3 g 98.4 [degF] 20 /min 60 /min 100 % 100 % 116/72 mm[Hg] JUAN Muhammad PA - [facility] 3 09:01:23 Social History Question Answer Notes LastModified by Organizat ion Details LastModified Time Tobacco Smoking Status Former Smoker JUAN NARINDER susan [place] - [facility] 02/02/2023 08:58:07 What Is [...] Diagnosis SNOMED-CT Code Diagnosis ICD10 Code Diagnosis IMO Codes Diagnosis Note [id number] [facility] [address] [facility] [address] [place] [address] 10/08/2019 12:48:02 10/08/2019 14:07:42 [id number] [address] [place] [address] 06/29/2021 14:39:06 06/29/2021 15:35:37 [id number] [address] [place] [address] 07/17/2019 18:37:15 07/17/2019 19:58:59 [id number] Gunner Lofton [place] [address] [place] [address] 02/02/2023 08:08:48 02/02/2023 09:50:22 Acute pharyngitis 198948984 J02.9 Use over the counter medication s [...] symptoms: 1. A fever of at least 101 F or 38.4 C2. Throat pain that is severe or does [...] mouth Exacerbati on of moderate persistent asthma 065730099 J45.41 Health Concerns Section Related Observation LastModified by Organization Detai ls LastModified Time None Recorded Concern Status LastModified by Organization Details LastModified Time None Recorded Advance Directives Directive None Recorded Payers Insurance Date Sequence Insurance Name Policy Number Policy Kim Covered Member ID Kim Member ID Guarantor Name 02/02/[address] [place] [address] [id number] Flaquita Briceño [id number] Flaquita Briceño Notes Date Note Type Note Provider Name and Address Organization Details Recorded Time 02/02/2023 text/html Sore throatRepor elvira by PatientSore ThroatFor associated symptoms, patient reportssore throatandcoughing. For location, patient reportsthroat. For severity, patient reportsmoderate. For quality, patient reportshurts to swallow. For onset/timing, patient reports4 days. Gunner Lofton MD [address] [place] [address] [place], [address], [place] - [facility] 02/02/2023 10:04:50 OBGyn Episode No OBEpisode recorded.
== END 2025-08-06 08:27 | disposition home or self-care (01) ==
LOC: HO.MAMMO 08:26
PROVIDERS: PCP Nurse Practitioner Family; Visit Provider Nurse Practitioner Family
DX: Z12.31 Encounter for screening mammogram for malignant neoplasm of breast (principal)
CPT/HCPCS: 77063; 77067

== ENCOUNTER → 2025-08-06 08:30 | Outpatient (BNV) | payer OTHER, SELFPAY | PROVIDERS: PCP Nurse Practitioner Family; Visit Provider Internal Medicine | DX: Z12.31 Encounter for screening mammogram for malignant neoplasm of breast (principal) | CPT/HCPCS: 77063; 77067 ==